=== PATIENT | female | born 1965 | race African-American/Black ===

== ENCOUNTER 2024-06-21 02:44 | Emergency (ER) | payer MEDICAID, SELFPAY ==
--- NOTE | ~2024-06-21 | CT_ITS ---
CT of the Abdomen and Pelvis: Indication: Abdominal pain Technique: 2.5 mm axial scans were obtained through the abdomen and pelvis following intravenous adm inistration of 100 cc of Omnipaque 350. Dose reduction technique was used on this scan by utilizing a utomated exposure control and iterative reconstruction technique. The dose-length product (DLP) was 1 611.38 mGy-cm. Findings: Scans through the lung bases are unremarkable. The liver, spleen, pancreas, adrenals and left kidney are within normal limits. There are gallstones with gallbladder wall thickening. Is a 1.6 cm possible solid right renal mass (axial image 67). No ev idence of aortic aneurysm. No lymphadenopathy. No bowel obstruction or bowel wall thickening. There is no evidence to suggest acute appendicitis. Images through the pelvis were performed. Urinary bladder unremarkable. No pelvic mass seen. Status p ost hysterectomy. No ascites. Impression: Cholelithiasis with gallbladder wall thickening, suspicious for superimposed acute cholecystitis. Cor relate clinically. Consider HIDA scan as indicated. Suspected 1.6 cm solid right renal mass. Pre and postcontrast renal MRI (nonemergent basis) recommend ed to better confirm solid lesion, which would be suspicious for small renal cell carcinoma. Reviewed, dictated and finalized at location M. Impression: Cholelithiasis with gallbladder wall thickening, suspicious for superimposed ac jessica cholecystitis. Correlate clinically. Consider HIDA scan as indicated. Suspected 1.6 cm solid right renal mass. Pre and postcontrast renal MRI (noneme rgent basis) recommended to better confirm solid lesion, which would be suspici ous for small renal cell carcinoma.
[2024-06-21 02:47] VITALS: BP 154/128; PULSE 70; RESP 16; TEMP 36.2; O2SAT 100
[2024-06-21 03:22] VITALS: BP 223/97; PULSE 71; RESP 28; O2SAT 100
[2024-06-21 03:40] LABS: Basophils Absolute Auto 0.1 K/mm3 (0.0-0.1); Basophils Percent Auto 1.8 % (0.2-1.2); Eosinophils Absolute Auto 0.1 K/mm3 (0-0.3); Eosinophils Percent Auto 1.1 % (0-4.4); Hematocrit 45.8 % (37.0-47.0); Hemoglobin 14.7 g/dL (12.0-15.0); Immature Granulocyte Absolute 0.01 K/mm3 (0.00-0.031); Immature Granulocyte Percent A 0.2 % (0-0.5); Lymphocytes Percent Auto 22.1 % (18.3-44.2); Mean Corpuscular HGB Conc 32.1 g/dl (32-36); Mean Corpuscular Hemoglobin 26.8 pg (26-34); Mean Corpuscular Volume 83.6 fl (80-100); Mean Platelet Volume 11.1 fl (7.4-10.4); Monocytes Absolute Auto 0.1 K/mm3 (0.1-0.6); Monocytes Percent Auto 2.9 % (2.6-8.5); Neutrophils Absolute Auto 3.3 K/mm3 (1.3-6.7); Neutrophils Percent Auto 71.9 % (45.5-73.1); Platelet Count Result 186 k/mm3 (150-375); Red Blood Count 5.48 M/mm3 (4.2-5.4); Red Cell Distribution Width 14.1 % (11.5-14.5); White Blood Count 4.5 K/mm3 (4.5-10.0)
[2024-06-21 03:50] LABS: Alanine Aminotransferase 15 U/L (6-35); Albumin Level 4.4 g/dL (3.5-5.1); Alkaline Phosphatase 92 U/L (38-126); Anion Gap 10 mmol/L (4-12); Aspartate Amino Transferase 25 U/L (14-36); Bilirubin,Total 0.6 mg/dL (0.2-1.3); Blood Urea Nitrogen 11 mg/dL (7-17); Calcium 9.4 mg/dL (8.4-10.2); Carbon Dioxide 29 mmol/L (22-30); Chloride 98 mmol/L (98-107); Estimated CRCL calculation 85 ml/min; Estimated Glomerular Filt Rate 57; Glucose 182 mg/dL (65-110); Sodium 137 mmol/L (137-145)
--- NOTE | 2024-06-21 05:02 | PC.NURSE ---
Pt refused morphine, zofran, and fluids. FARHADP Yessi, notified.
--- NOTE | 2024-06-21 05:20 | ED.GENADULT ---
HPI - General Adult General Chief complaint: Abdominal Pain <Flakito Dickson MD - Last Filed: 06/21/24 06:42> Stated complaint: abdominal pain <Flakito Dickson MD - Last Filed: 06/21/24 06:42> Time Seen by Provider: 06/21/24 04:03 <Flakito Dickson MD - Last Filed: 06/21/24 06:42> History of Present Illness HPI narrative: Patient denies no female presents emergency department with chief complaint of left-sided flank pain for last 2 weeks patient reports the pain is radiated now to the left upper side of the abdomen and reports that she has had some loose stools and nausea. The patient reports that she has prior partial hysterectomy reports that she has also had some frequent urination. <Flakito Dickson MD - Last Filed: 06/21/24 06:42> 58-year-old female presents to the emergency department with chief complaint of left-sided flank pain for last 2 weeks patient reports the pain is radiated now to the left upper side of the abdomen and reports that she has had some loose stools and nausea. The patient reports that she has prior partial hysterectomy reports that she has also had some frequent urination. <Garrett Law MD - Last Filed: 06/21/24 17:03> Related Data Allergies/adverse reactions: Allergies Allergy/AdvReac Type Severity Reaction Status Date / Time No Known Allergies Allergy Verified 06/21/24 03:25 <Flakito Dickson MD - Last Filed: 06/21/24 06:42> Exam Narrative: GENERAL: Well-appearing, well-nourished, and in no acute distress. HEAD: Normocephalic, atraumatic. EYES: PERRLA and EOMI. ENT: Nares clear, no rhinorrhea or epistaxis. Mucous membranes moist. NECK: Supple. CHEST: Clear to auscultation. No respiratory distress. HEART: Regular rate and rhythm. No murmur heard. Normal peripheral pulses. ABDOMEN: Soft, diffuse tenderness in the upper quadrants of the abdomen, nondistended, normal active bowel sounds. EXTREMITIES: Normal range of motion. No edema. SKIN: Warm, dry, no rash. NEURO: No focal deficits. Alert and oriented x3. PSYCH: Normal mood and affect. <Flakito Dickson MD - Last Filed: 06/21/24 06:42> Course Reevaluation(s) Reevaluation #1: 58-year-old female present to the emergency department for evaluation for diffuse abdominal pain. On re-evaluation patient has no tenderness to palpation. Patient is afebrile with no leukocytosis and a stable hemoglobin of 14.7. Patient has no elevation in T bili AST ALT alk-phos or lipase. UA is negative for infection. CT abdomen pelvis was concerning for possible acute cholecystitis but patient has no tenderness to palpation. CT was also concerning for a rectal mass and patient states she is aware of this mass. Patient states that is been present for approximately the last 15 years. Patient does have a primary care physician and patient was advised to have a HIDA scan and a rectal MRI. Patient was also updated on dietary changes. <Garrett Law MD - Last Filed: 06/21/24 17:03> Vital Signs Vital signs: Vital Signs Temperature 97.2 F L 06/21/24 02:47 Pulse Rate 70 06/21/24 02:47 Respiratory Rate 16 06/21/24 02:47 Blood Pressure 154/128 H 06/21/24 02:47 Pulse Oximetry 100 06/21/24 02:47 Oxygen Delivery Room Air 06/21/24 02:47 Temperature 97.7 F 06/21/24 07:45 Pulse Rate 71 06/21/24 07:45 Respiratory Rate 20 06/21/24 07:45 Blood Pressure 167/79 H 06/21/24 07:45 Pulse Oximetry 100 06/21/24 07:45 Oxygen Delivery Room Air 06/21/24 02:47 <Flakito Dickson MD - Last Filed: 06/21/24 06:42> Vital Signs Temperature 97.2 F L 06/21/24 02:47 Pulse Rate 70 06/21/24 02:47 Respiratory Rate 16 06/21/24 02:47 Blood Pressure 154/128 H 06/21/24 02:47 Pulse Oximetry 100 06/21/24 02:47 Oxygen Delivery Room Air 06/21/24 02:47 Temperature 97.7 F 06/21/24 07:45 Pulse Rate 71 06/21/24 07:45 Re
[2024-06-21 05:35] LABS: Add Urine Microscopic? YES; Appearance Urine Clear (Clear); Bacteria Urine None Seen /hpf; Bilirubin Urine Negative (Negative); Blood Urine Negative (Negative); Color Urine Yellow (Yellow); Glucose Urine UA Negative (Negative); Ketones Urine Negative (Negative); Leukocyte Esterase Ur Negative LEU/UL (Negative); Nitrate Urine Negative (Negative); Non Pathogenic Casts 0-2; Protein Urine Trace mg/dL (Negative); RBC Urine 0-2 /hpf (0-2); Specific Grav Ur 1.007 (1.001-1.035); Squamous Epithelial Cell Urine Occasional /hpf (Few); Urobilinogen Urine 0.2 mg/dL (<2.0); WBC Urine 0-5 /hpf (0-3)
[2024-06-21 05:45] VITALS: BP 191/87; PULSE 62; RESP 17; O2SAT 97
[2024-06-21 05:47] LABS: BEDSIDEPREGUCG Negative
--- NOTE | 2024-06-21 06:42 | PC.NURSE ---
Lab called regarding add on lipase
[2024-06-21 07:10] LABS: Lipase 230 U/L (23-300)
[2024-06-21 07:45] VITALS: BP 167/79; PULSE 71; RESP 20; TEMP 36.5; O2SAT 100
== END 2024-06-21 07:45 | disposition home or self-care (01) ==
PROVIDERS: Emergency Provider Emergency Medicine
DX: R10.12 Left upper quadrant pain (principal); K62.89 Other specified diseases of anus and rectum; Z90.711 Acquired absence of uterus with remaining cervical stump; K80.20 Calculus of gallbladder without cholecystitis without obstruction
CPT/HCPCS: 36415; 74177; 80053; 81001; 81025; 83690; 85025; 99284; Q9967

== ENCOUNTER 2024-06-23 10:03 | Inpatient (IN) | payer MEDICAID, SELFPAY ==
[2024-06-23] VITALS (11 sets, daily range): BP systolic 156–225; BP diastolic 69–92; PULSE 74–89; RESP 16–20; TEMP 36.8–37.6; O2SAT 96–100; BMI 54.5
--- NOTE | ~2024-06-23 | US_ITS ---
EXAMINATION: US abdomen limited DATE: 06/24/2024 15:43 INDICATION: Acute cholecystitis. TECHNIQUE: Multiple grayscale and Doppler ultrasound images of the abdomen were obtained. COMPARISON: CT abdomen and pelvis 06/23/2024 FINDINGS: The visualized portions of the head, body, and tail of the pancreas are normal. The liver i s normal without focal lesion. There is normal flow in main portal vein. The gallbladder is normal in size and contains gallstones. Gallbladder wall thickening is noted. There is a positive sonographic Lang sign. The common duct is normal and measures 6 mm. IMPRESSION: 1. Acute cholecystitis. Reviewed, dictated and finalized at location E. IMPRESSION: 1. Acute cholecystitis.
--- NOTE | ~2024-06-23 | US_ITS ---
EXAMINATION: US venous doppler [facility] DATE: 06/24/2024 13:04 INDICATION: Calf tenderness. TECHNIQUE: Grayscale ultrasound images without and with compression and Doppler ultrasound images of the bilateral lower extremity veins were obtained. COMPARISON: None. FINDINGS: The visualized portions of right common femoral vein, profunda (deep) femoral vein, femoral vein, pop liteal vein, peroneal veins, posterior tibial veins, and greater saphenous vein outflow are patent. The visualized portions of left common femoral vein, profunda femoral vein, femoral vein, popliteal v ein, peroneal veins, posterior tibial veins, and greater saphenous vein outflow are patent. IMPRESSION: 1. No deep venous thrombosis. Reviewed, dictated and finalized at location E.
--- NOTE | ~2024-06-23 | CT_ITS ---
EXAMINATION: CT abdomen pelvis w con DATE: 06/23/2024 11:59 INDICATION: Acute cholecystitis. Upper abdominal pain. TECHNIQUE: Computed tomography (CT) of the abdomen and pelvis was performed with 100 mL Omnipaque 350 intravenous contrast. Automated exposure control and iterative reconstruction technique were employe d. The dose-length product was 1476.83 mGy-cm. COMPARISON: CT abdomen and pelvis 06/21/2024 FINDINGS: The visualized portions of the lung bases demonstrate mild atelectasis. A calcified left harriet ng nodule and calcified left hilar lymph nodes are consistent with old granulomatous disease. No pleu ral effusion. The heart size is normal. No pericardial effusion. The liver is normal. There is a 10 m m hypodense mass in the spleen, likely a benign mass such as granulomatous disease. The gallbladder i s distended and contains gallstones. Gallbladder wall thickening is noted. There is pericholecystic f at stranding. The pancreas and adrenal glands are normal. There are cysts in the kidneys measuring up to 17 mm on the right. There is a 12 mm mass in right kidney There is cortical thinning of right kid tiffanie. There is diverticulosis of the colon without evidence of diverticulitis. There are no dilated lo ops of bowel. The appendix is normal. There are no pathologically enlarged lymph nodes. There is trac e fluid in the pelvis. There is severe lower lumbar spondylosis. IMPRESSION: 1. Worsened acute cholecystitis. 2. 12 mm right kidney mass which may be a hemorrhagic cyst or less likely a neoplasm. Abdomen MRI wit hout and with contrast is recommended. Reviewed, dictated and finalized at location A. IMPRESSION: 1. Worsened acute cholecystitis. 2. 12 mm right kidney mass which may be a hemorrhagic cyst or less likely a jeevan plasm. Abdomen MRI without and with contrast is recommended.
[2024-06-23 10:38] LABS: Basophils Absolute Auto 0.1 K/mm3 (0.0-0.1); Basophils Percent Auto 0.4 % (0.2-1.2); Hematocrit 46.4 % (37.0-47.0); Hemoglobin 14.9 g/dL (12.0-15.0); Immature Granulocyte Percent A 0.7 % (0-0.5); Lymphocytes Absolute Auto 0.86 K/mm3 (0.9-3.2); Lymphocytes Percent Auto 6.4 % (18.3-44.2); Mean Corpuscular HGB Conc 32.1 g/dl (32-36); Mean Corpuscular Hemoglobin 27.2 pg (26-34); Mean Corpuscular Volume 84.7 fl (80-100); Mean Platelet Volume 11.8 fl (7.4-10.4); Monocytes Absolute Auto 0.6 K/mm3 (0.1-0.6); Monocytes Percent Auto 4.2 % (2.6-8.5); Neutrophils Absolute Auto 11.9 K/mm3 (1.3-6.7); Neutrophils Percent Auto 88.3 % (45.5-73.1); Platelet Count Result 168 k/mm3 (150-375); Red Blood Count 5.48 M/mm3 (4.2-5.4); White Blood Count 13.5 K/mm3 (4.5-10.0)
--- NOTE | 2024-06-23 10:54 | ED.NAVMDI ---
HPI - Nausea/Vomiting/Diarrhea General Chief complaint: Nausea/Vomiting/Diarrhea Stated complaint: Nausea/vomitting Time Seen by Provider: 06/23/24 10:42 History of Present Illness HPI Narrative: This is a 58-year-old female presented to the ED for persistent abdominal pain. Patient states she was seen and evaluated 2 days prior and was told she had a gallbladder issue. On review of the EMR she was in this emergency department on 06/[address] scan that showed potential acute cholecystitis. Patient apparently had symptomatic resolution at that time and was discharged home with outpatient follow-up with HIDA scan. Patient states she did feel improved upon discharge but as soon as she got home she had worsening abdominal pain and subjective fever and chills. Endorses nausea and sensation of need to use the restroom consistently. Today she presents with worsening abdominal pain in the right upper quadrant that radiates to her back. She has been out of her home medications and states she has not been able to take her amlodipine or hydrochlorothiazide recently. Denies any chest pain or shortness of breath, headache, vision changes. No dysuria or hematuria. No tarry stools or bright red blood per rectum. Related Data Home Medications Medication Instructions Recorded Confirmed Unable to Obtain Home Medications 06/23/24 06/23/24 Allergies Allergy/AdvReac Type Severity Reaction Status Date / Time No Known Allergies Allergy Verified 06/23/24 11:01 Review of Systems Review of Systems: As reviewed above in HPI [facility] Past Medical History Medical History (Updated 06/23/24 @ 16:35 by Javon Maguire MD) Hypertension Social History Social History Smoking status: Never smoker Alcohol intake: never Substance use: never Do You Feel Safe in your Home?: Yes Lack of Transportation: YES Lack of Food: Sometimes True Current Housing: I Have Housing Concerned About Future Housing: YES Difficulty Paying Gas/Electric Bills: YES Difficulty Paying for Meds: No Currently Unemployed: No Education: High School Diploma/GED Difficulty w/ Childcare or Family Care: No Spiritual care concerns: No Exam Narrative: GENERAL: Morbidly obese but well nourished not in any acute distress HEAD: [Normocephalic, atraumatic.] EYES: [PERRLA and EOMI.] ENT: Nares clear, no rhinorrhea or epistaxis. Mucous membranes moist. NECK: Supple. CHEST: [Clear to auscultation. No respiratory distress.] HEART: [Regular rate and rhythm]. No murmur heard. [Normal peripheral pulses.] ABDOMEN: [Soft, nondistended], tenderness and warmth in the right upper quadrant that is with positive Lang sign, [No rigidity or guarding] EXTREMITIES: Normal range of motion. [No edema.] SKIN: Warm, dry, no rash. NEURO: [No focal deficits]. Alert and oriented [x3.] PSYCH: [Normal mood and affect.] Course Vital Signs Vital signs: Vital Signs Temperature 36.8 C 06/23/24 10:04 Pulse Rate 74 06/23/24 10:04 Respiratory Rate 18 06/23/24 10:04 Blood Pressure 225/92 H 06/23/24 10:04 Pulse Oximetry 100 06/23/24 10:04 Oxygen Delivery Room Air 06/23/24 10:04 Temperature 36.8 C 06/23/24 15:09 Pulse Rate 80 06/23/24 15:09 Respiratory Rate 20 06/23/24 15:09 Blood Pressure 172/83 H 06/23/24 15:09 Pulse Oximetry 100 06/23/24 15:09 Oxygen Delivery Room Air 06/23/24 10:04 MDM - Nausea/Vomiting/Diarrhea MDM Narrative Medical decision making narrative: This is a 58-year-old female with a past medical history including hypertension who presents to the ED for continued right upper quadrant abdominal discomfort. She had a CT scan 2 days prior that showed concern for acute cholecystitis but her symptoms resolved issues discharged home. Today she is returning with worsening abdominal discomfort, nauseousness as persistent and subjective f
[2024-06-23 10:56] LABS: Alanine Aminotransferase 14 U/L (6-35); Albumin Level 4.2 g/dL (3.5-5.1); Alkaline Phosphatase 97 U/L (38-126); Anion Gap 12 mmol/L (4-12); Aspartate Amino Transferase 19 U/L (14-36); Bilirubin,Total 1.3 mg/dL (0.2-1.3); Blood Urea Nitrogen 8 mg/dL (7-17); Calcium 8.9 mg/dL (8.4-10.2); Carbon Dioxide 26 mmol/L (22-30); Chloride 98 mmol/L (98-107); Estimated Glomerular Filt Rate > 60; Glucose 176 mg/dL (65-110); Lipase 98 U/L (23-300); Potassium 3.7 mmol/L (3.4-5.0); Sodium 136 mmol/L (137-145)
[2024-06-23] MEDS: HYDROmorphone HCL INJ (*CRX) 1 MG/ML SYR IV PUSH (11:21)
[2024-06-23] MEDS: ONDANSETRON INJ 4 MG/2 ML VIAL IV PUSH (11:21)
[2024-06-23] MEDS: LACTATED RINGERS 1,000 ML 999 ML IV CONT (11:22)
[2024-06-23] MEDS: hydroCHLOROthiazide 12.5 MG CAPSULE PO (11:33)
--- NOTE | 2024-06-23 14:20 | PM.IMHP ---
H&P: HPI History of Present Illness Date/Time: 06/23/24 14:00 Chief Complaint: Abdominal pain. Narrative: This is a pleasant 58-year-old female with history of deep venous thrombosis, type 2 diabetes mellitus, and hypertension who presented to the emergency department for evaluation of abdominal pain. The patient provides the following history. She lives in [place] and drove to [place] several weeks ago to visit family members. While in [place] she developed intermittent abdominal pain, initially in the left flank but it has settled more so into the right upper quadrant the last several days. Symptoms improved enough that she started back home however her car broke down in the area a few days ago and she has been staying at a local motel. Several days ago her pain worsened and she was seen in the ED 2 days ago at which time a CT scan showed cholelithiasis with gallbladder wall thickening suspicious for acute cholecystitis and a 1.6 cm solid right renal mass. Her symptoms improved with supportive care and she was discharged home for close follow-up with her primary care provider. Unfortunately she started feeling poorly again along after discharge from the ED and she returns today with colicky pain in the right upper quadrant radiating through to the back, nausea, poor appetite, subjective fever, and chills. She denies chest pain, pleuritic pain, shortness of breath, sinus congestion, sore throat, cough, vomiting, diarrhea, dysuria, hematuria, and weight loss. In the ED: She was afebrile on arrival. Blood pressure was as high as 225/92 and she reports being out of her antihypertensives for 2 days. Labs were significant for WBC count of 13.5, hemoglobin 14.9, sodium 136, glucose 176, and normal LFTs. Repeat CT scan showed worsened acute cholecystitis a 12 mm right kidney mass which may be hemorrhagic cyst or less likely neoplasm. She was given a L of lactated Ringer's, hydromorphone, and ceftriaxone and she is being admitted in this setting for further treatment and surgery consultation. Review of Systems Review of Systems: 12 systems were reviewed and are negative except for as per HPI. [facility], [facility] Past Medical History Medical History (Updated 06/23/24 @ 21:27 by Sujatha Condon PA-C) Deep venous thrombosis Following surgery. Hypertension Type 2 diabetes mellitus Surgical History Surgical History (Updated 06/23/24 @ 21:27 by Sujatha Condon PA-C) History of partial hysterectomy History of tubal ligation Family History Family History (Updated 06/23/24 @ 21:28 by Sujatha Condon PA-C) Other Family history non-contributory Social History Social History (Updated 06/23/24 @ 21:28 by Sujatha Condon PA-C) Social History: Surrogate medical decision maker: Mary Harry, sister. Code status: Full code. Smoking status: Never smoker Alcohol intake: never Substance use: never Do You Feel Safe in your Home?: Yes Lack of Transportation: YES Lack of Food: Sometimes True Current Housing: I Have Housing Concerned About Future Housing: YES Difficulty Paying Gas/Electric Bills: YES Difficulty Paying for Meds: No Currently Unemployed: No Education: High School Diploma/GED Difficulty w/ Childcare or Family Care: No Spiritual care concerns: No Meds Home Medications and Allergies Home Medications Medication Instructions Recorded Confirmed Type Unable to Obtain Home Medications 06/23/24 06/23/24 History Allergies Allergy/AdvReac Type Severity Reaction Status Date / Time No Known Allergies Allergy Verified 06/23/24 11:01 Vital Signs Vital Signs - 24 hr 06/23/24 10:04 06/23/24 10:58 06/23/24 14:05 Temperature 98.2 F Pulse Rate 74 82 88 Respiratory Rate 18 19 16 Blood Pressure 225/92 H 210/87 H 186/88 H Pulse Oximetry 100 100 96 Oxygen Delivery Room Air Exam Narrative: General: Moderately ill-appearing female in the semi-Vizcarra position in bed. Weight:
[2024-06-23] MEDS: LACTATED RINGERS 1,000 ML 125 ML IV CONT ×2 (15:11→20:50)
[2024-06-23] MEDS: metroNIDAZOLE 500 MG/ISO 100ML 500 MG/100 ML BAG 100 MG IVPB ×2 (15:11→20:51)
[2024-06-23 15:16] LABS: Add Urine Microscopic? YES; Appearance Urine Clear (Clear); Bacteria Urine None Seen /hpf; Bilirubin Urine Negative (Negative); Blood Urine Negative (Negative); Color Urine Yellow (Yellow); Glucose Urine UA Negative (Negative); Ketones Urine 1+ mg/dL (Negative); Leukocyte Esterase Ur Negative LEU/UL (Negative); Nitrate Urine Negative (Negative); Non Pathogenic Casts 0-2; Protein Urine 2+ mg/dL (Negative); RBC Urine 0-2 /hpf (0-2); Specific Grav Ur 1.035 (1.001-1.035); Squamous Epithelial Cell Urine Occasional /hpf (Few); WBC Urine 0-5 /hpf (0-3); pH Urine 7.5 (5.0-9.0)
[2024-06-23] MEDS: MORPHINE SULFATE (*CRX) 2 MG/ML INJ IV PUSH (18:08)
[2024-06-23] MEDS: HYDROcodone/acetaminophen (*CRX) 5-325 MG TABLET 1 TAB PO (20:52)
[2024-06-24] VITALS (11 sets, daily range): BP systolic 142–182; BP diastolic 53–84; PULSE 76–88; RESP 18–24; TEMP 37.4–38.6; O2SAT 96–100
[2024-06-24 05:01] LABS: Basophils Absolute Auto 0.1 K/mm3 (0.0-0.1); Basophils Percent Auto 0.3 % (0.2-1.2); Eosinophils Percent Auto 0.1 % (0-4.4); Hematocrit 40.4 % (37.0-47.0); Hemoglobin 12.9 g/dL (12.0-15.0); Immature Granulocyte Absolute 0.17 K/mm3 (0.00-0.031); Immature Granulocyte Percent A 0.9 % (0-0.5); Lymphocytes Absolute Auto 1.47 K/mm3 (0.9-3.2); Lymphocytes Percent Auto 7.4 % (18.3-44.2); Mean Corpuscular HGB Conc 31.9 g/dl (32-36); Mean Corpuscular Hemoglobin 27.2 pg (26-34); Mean Corpuscular Volume 85.1 fl (80-100); Monocytes Absolute Auto 1.4 K/mm3 (0.1-0.6); Neutrophils Absolute Auto 16.7 K/mm3 (1.3-6.7); Neutrophils Percent Auto 84.3 % (45.5-73.1); Platelet Count Result 166 k/mm3 (150-375); Red Blood Count 4.75 M/mm3 (4.2-5.4); Red Cell Distribution Width 14.1 % (11.5-14.5); White Blood Count 19.8 K/mm3 (4.5-10.0)
[2024-06-24 05:16] LABS: Alanine Aminotransferase 12 U/L (6-35); Albumin Level 3.4 g/dL (3.5-5.1); Alkaline Phosphatase 79 U/L (38-126); Anion Gap 8 mmol/L (4-12); Aspartate Amino Transferase 20 U/L (14-36); Bilirubin,Total 1.2 mg/dL (0.2-1.3); Blood Urea Nitrogen 14 mg/dL (7-17); Calcium 8.4 mg/dL (8.4-10.2); Carbon Dioxide 30 mmol/L (22-30); Chloride 96 mmol/L (98-107); Estimated CRCL calculation 61 ml/min; Estimated Glomerular Filt Rate 47; Glucose 151 mg/dL (65-110); Magnesium 2.1 mg/dL (1.6-2.3); Sodium 134 mmol/L (137-145)
[2024-06-24 05:45] LABS: Hemoglobin A1C 6.3 % (<5.7)
[2024-06-24] MEDS: metroNIDAZOLE 500 MG/ISO 100ML 500 MG/100 ML BAG 100 MG IVPB ×3 (06:34→21:12)
[2024-06-24] MEDS: ACETAMINOPHEN 325 MG TABLET 650 MG PO (06:34)
[2024-06-24] MEDS: LACTATED RINGERS 1,000 ML 125 ML IV CONT (06:34)
--- NOTE | 2024-06-24 07:12 | PM.IMPN ---
Progress Note: A&P Assessment and Plan (1) Sepsis: Code(s): A41.9 - Sepsis, unspecified organism Status: Acute Assessment and Plan: Meets SIRS criteria: febrile, leukocytosis, suspected source of infection - lactic acid: 0.8 - fluid resuscitation - suspected source: cholecystitis - blood cultures drawn on 06/24: pending - UA nonconcerning for infection - CT abdomen/pelvis: Worsened acute cholecystitis. 12 mm right kidney mass which may be a hemorrhagic cyst or less likely a neoplasm. - Antibiotics: flagyl and zosyn (2) Acute cholecystitis: Code(s): K81.0 - Acute cholecystitis Status: Acute Assessment and Plan: - CT abdomen/pelvis: Worsened acute cholecystitis. 12 mm right kidney mass which may be a hemorrhagic cyst or less likely a neoplasm. - RUQ US ordered - Antibiotics: started on Rocephin and Flagyl 06/23, Rocephin changed to Zosyn for better abdominal coverage on 06/24 - Surgery consulted Continue conservative management with IV antibiotics at this point, patient clinically improving and will start clears, advance as tolerated to low-fat diet (3) Right renal mass: Code(s): N28.89 - Other specified disorders of kidney and ureter Status: Acute Assessment and Plan: CT abdomen/pelvis: 12 mm right kidney mass which may be a hemorrhagic cyst or less likely a neoplasm. Abdomen MRI without and with contrast is recommended. - Can pursue MRI once acute symptoms resolve - Discussed with patient and she plans to follow up with PCP once back home (4) Hypertension: Code(s): I10 - Essential (primary) hypertension Status: Acute Assessment and Plan: Blood pressures are high due to pain; she has also been out of medications for 2 months. Resume antihypertensives. - amlodipine 10 mg daily - continue to monitor (5) Type 2 diabetes mellitus: Code(s): E11.9 - Type 2 diabetes mellitus without complications Status: Acute Assessment and Plan: - hypoglycemia protocol - POC blood glucose ACHS - home medication - none, states she was recently taken off of metformin by her PCP - correct regimen ordered - low dose TIDWM and HS - A1C 6.3 Time Spent With Patient Time with patient: 25 - 35 minutes Subjective Date/time seen: 06/24/24 07:12 Interval history: 58-year-old female with history of deep venous thrombosis, type 2 diabetes mellitus, and hypertension who presented to the emergency department for evaluation of abdominal pain. Patient is pleasant lying comfortably in bed. She continues to endorse right upper quadrant pain, but states that this has improved since admission. She notes that the current pain regimen is working. She was evaluated by surgery today and plans to undergo medical management at this time. She was on Flagyl and Rocephin at admission. Rocephin discontinued and started on Zosyn for better abdominal coverage. Patient was noted to be febrile this morning, requiring tylenol. Will continue to monitor. Patients diet being advanced as tolerated. Discussed the right renal mass with patient and she was unaware of this. She is to follow up with this outpatient with PCP. Patient denies nausea/vomiting, chest pain, shortness of breath, and changes in bowel/bladder. Review of Systems Review of Systems: All systems reviewed & are unremarkable except as noted in HPI and below Exam Narrative: F HR 84 RR 20 SpO2 96 BP 156/53 General: female in no acute respiratory distress who is nontoxic appearing, sitting up in bed HEENT: Normocephalic. Atraumatic. Extraocular movement intact. Sclera clear and anicteric. No facial asymmetry. Chest: Lungs are clear to auscultation bilaterally. No wheezes or crackles. CV: Heart was regular rate and rhythm. S1-S2. No murmurs, gallops, or rubs. Abd: Abdomen was soft. Tenderness to RUQ without guarding. Nondistended. Positive bowel sounds. No organomegaly or masses. Ext: No clubbing, cyanosis, or edema. 2+ DP p
[2024-06-24 07:47] LABS: Glucose Point of Care 148 mg/dl (65-105)
--- NOTE | 2024-06-24 08:05 | PM.CNGS ---
Assessment and Plan Assessment and plan (1) Cholecystitis with cholelithiasis: Code(s): K80.10 - Calculus of gallbladder with chronic cholecystitis without obstruction Status: Acute Assessment and Plan: Episode has been ongoing for the last week or so, continue conservative management with IV antibiotics at this point, patient clinically improving and will start clears and advance as tolerated to low-fat diet, will get formal right upper quadrant ultrasound, discussion with patient regarding surgery and patient would like to proceed with conservative therapy and possibly have surgery back in [place] if possible (2) Right renal mass: Code(s): N28.89 - Other specified disorders of kidney and ureter Status: Acute Assessment and Plan: seen on CT, will need follow-up once back to [place] (3) Type 2 diabetes mellitus: Code(s): E11.9 - Type 2 diabetes mellitus without complications Status: Acute Assessment and Plan: will need tight blood sugar control given cholecystitis, management per primary team (4) Hypertension: Code(s): I10 - Essential (primary) hypertension Status: Acute Assessment and Plan: noted to be quite hypertensive in the emergency department, management per primary team History of Present Illness Consult details Consult date: 06/24/24 Reason for consult: abdominal pain Requesting physician: Neida Andre PA-C Narrative: The patient is a 58-year-old female presented to the emergency department complaining of severe right upper quadrant abdominal pain. The patient reports the pain was sharp and constant and rated at 10/10. The patient reports associated nausea, vomiting, poor appetite, bloating. Patient reports that this episode has been going on for few days and was actually seen in the ER prior to this with similar episode that resolved with supportive care. Upon evaluation today, the patient reports she feels much better and would like to try a diet. Of note, the patient is not from the [facility] and has been traveling. Review of Systems Review of Systems: All systems reviewed & are unremarkable except as noted in HPI and below PMFSH Past Medical History Medical History Deep venous thrombosis Following surgery. Hypertension Type 2 diabetes mellitus Surgical History Surgical History History of partial hysterectomy History of tubal ligation Family History Family History Other Family history non-contributory Social History Social History Social History: Surrogate medical decision maker: Mary Harry, sister. Code status: Full code. Smoking status: Never smoker Alcohol intake: never Substance use: never Do You Feel Safe in your Home?: Yes Lack of Transportation: YES Lack of Food: Sometimes True Current Housing: I Have Housing Concerned About Future Housing: YES Difficulty Paying Gas/Electric Bills: YES Difficulty Paying for Meds: No Currently Unemployed: No Education: High School Diploma/GED Difficulty w/ Childcare or Family Care: No Spiritual care concerns: No Meds Home Medications and Allergies Home Medications Medication Instructions Recorded Confirmed Type Unable to Obtain Home Medications 06/23/24 06/23/24 History Allergies Allergy/AdvReac Type Severity Reaction Status Date / Time No Known Allergies Allergy Verified 06/23/24 11:01 Vital Signs Vital Signs - 24 hr 06/23/24 10:04 06/23/24 10:58 06/23/24 14:05 Temperature 36.8 C Pulse Rate 74 82 88 Respiratory Rate 18 19 16 Blood Pressure 225/92 H 210/87 H 186/88 H Pulse Oximetry 100 100 96 Oxygen Delivery Room Air 06/23/24 10:19 06/23/24 15:09 06/23/24 15:07 Temperature 36.8 C
[2024-06-24 08:25] LABS: Lactic Acid Reflex 0.8 mmol/L (0.7-2.0)
[2024-06-24] MEDS: amLODIPine BESYLATE 10 MG TABLET PO (08:33)
[2024-06-24] MEDS: SODIUM CHLORIDE 0.9% IV 1,000 ML 75 ML IV CONT ×2 (08:33→21:11)
[2024-06-24] MEDS: PIPERACILLN/TAZ 3.375GM/NS50ML 3.375 GM/50 ML BAG IVPB ×3 (08:33→19:34)
[2024-06-24 12:01] LABS: Glucose Point of Care 163 mg/dl (65-105)
[2024-06-24] MEDS: MORPHINE SULFATE (*CRX) 2 MG/ML INJ IV PUSH (14:22)
[2024-06-24] MEDS: hydrALAZINE HCL 20 MG/ML VIAL 10 MG IV PUSH (16:00)
[2024-06-24 17:09] LABS: Glucose Point of Care 148 mg/dl (65-105)
[2024-06-24] MEDS: HYDROcodone/acetaminophen (*CRX) 5-325 MG TABLET 1 TAB PO (21:12)
[2024-06-24] MEDS: SENNA/DOCUSATE SODIUM TABLET 1 TAB PO (21:12)
[2024-06-24 21:15] LABS: Glucose Point of Care 149 mg/dl (65-105)
[2024-06-25] VITALS: BP 137/59; PULSE 76; RESP 18; TEMP 37.1; O2SAT 96
[2024-06-25] MEDS: PIPERACILLN/TAZ 3.375GM/NS50ML 3.375 GM/50 ML BAG IVPB ×4 (00:50→17:53)
[2024-06-25 04:50] LABS: Basophils Percent Auto 0.3 % (0.2-1.2); Eosinophils Absolute Auto 0.1 K/mm3 (0-0.3); Hematocrit 40.3 % (37.0-47.0); Hemoglobin 12.5 g/dL (12.0-15.0); Immature Granulocyte Absolute 0.07 K/mm3 (0.00-0.031); Immature Granulocyte Percent A 0.5 % (0-0.5); Lymphocytes Absolute Auto 1.53 K/mm3 (0.9-3.2); Mean Corpuscular Hemoglobin 26.8 pg (26-34); Mean Corpuscular Volume 86.3 fl (80-100); Mean Platelet Volume 11.9 fl (7.4-10.4); Monocytes Percent Auto 6.9 % (2.6-8.5); Neutrophils Absolute Auto 11.1 K/mm3 (1.3-6.7); Neutrophils Percent Auto 80.3 % (45.5-73.1); Platelet Count Result 148 k/mm3 (150-375); Red Blood Count 4.67 M/mm3 (4.2-5.4); Red Cell Distribution Width 14.1 % (11.5-14.5); White Blood Count 13.9 K/mm3 (4.5-10.0)
[2024-06-25 05:00] LABS: Alanine Aminotransferase 23 U/L (6-35); Albumin Level 3.3 g/dL (3.5-5.1); Alkaline Phosphatase 105 U/L (38-126); Anion Gap 7 mmol/L (4-12); Aspartate Amino Transferase 37 U/L (14-36); Bilirubin,Total 1.4 mg/dL (0.2-1.3); Blood Urea Nitrogen 13 mg/dL (7-17); Calcium 8.2 mg/dL (8.4-10.2); Carbon Dioxide 29 mmol/L (22-30); Chloride 98 mmol/L (98-107); Estimated CRCL calculation 67 ml/min; Estimated Glomerular Filt Rate 51; Glucose 120 mg/dL (65-110); Potassium 3.6 mmol/L (3.4-5.0); Sodium 134 mmol/L (137-145)
[2024-06-25 05:32] VITALS: BP 147/63; PULSE 75; RESP 18; TEMP 37.3; O2SAT 100
[2024-06-25] MEDS: metroNIDAZOLE 500 MG/ISO 100ML 500 MG/100 ML BAG 100 MG IVPB ×3 (06:20→20:03)
--- NOTE | 2024-06-25 07:47 | PM.IMPN ---
Progress Note: A&P Assessment and Plan (1) Sepsis: Code(s): A41.9 - Sepsis, unspecified organism Status: Acute Assessment and Plan: Meets SIRS criteria: febrile, leukocytosis, suspected source of infection - lactic acid: 0.8 - fluid resuscitation - suspected source: cholecystitis - blood cultures drawn on 06/24: NGTD - UA nonconcerning for infection - CT abdomen/pelvis: Worsened acute cholecystitis. 12 mm right kidney mass which may be a hemorrhagic cyst or less likely a neoplasm. - Antibiotics: flagyl and zosyn (2) Acute cholecystitis: Code(s): K81.0 - Acute cholecystitis Status: Acute Assessment and Plan: - CT abdomen/pelvis: Worsened acute cholecystitis. 12 mm right kidney mass which may be a hemorrhagic cyst or less likely a neoplasm. - RUQ US ordered - Antibiotics: started on Rocephin and Flagyl 06/23, Rocephin changed to Zosyn for better abdominal coverage on 06/24 - Surgery consulted Continue conservative management with IV antibiotics at this point, patient clinically improving and will start clears, advance as tolerated to low-fat diet Due to patients inflammation would benefit from surgery outpatient, per surgery patient plans to follow up with him rather than returning to [place] (3) Right renal mass: Code(s): N28.89 - Other specified disorders of kidney and ureter Status: Acute Assessment and Plan: CT abdomen/pelvis: 12 mm right kidney mass which may be a hemorrhagic cyst or less likely a neoplasm. Abdomen MRI without and with contrast is recommended. - Can pursue MRI once acute symptoms resolve - Discussed with patient and she plans to follow up with PCP once back home (4) Hypertension: Code(s): I10 - Essential (primary) hypertension Status: Acute Assessment and Plan: Blood pressures are high due to pain; she has also been out of medications for 2 months. Resume antihypertensives. - amlodipine 10 mg daily - continue to monitor (5) Type 2 diabetes mellitus: Code(s): E11.9 - Type 2 diabetes mellitus without complications Status: Acute Assessment and Plan: - hypoglycemia protocol - POC blood glucose ACHS - home medication - none, states she was recently taken off of metformin by her PCP - correct regimen ordered - low dose TIDWM and HS - A1C 6.3 Time Spent With Patient Time with patient: 25 - 35 minutes Subjective Date/time seen: 06/25/24 07:47 Interval history: 58-year-old female with history of deep venous thrombosis, type 2 diabetes mellitus, and hypertension who presented to the emergency department for evaluation of abdominal pain. Patient is pleasant lying comfortably in bed. She continues to endorse RUQ abdominal pain. She complains of increased nausea and abdominal pain with meals. She remains on liquid diet at this time with plan to advance as tolerated. Spoke with Dr. Farah about patient and he states that she now plans to follow up with him in the outpatient setting for surgery. She is to remain on antibiotic therapy at this time. Patient denies chest pain, shortness of breath, vomiting and changes in bladder. She states that she has not had a bowel movement and was started on a bowel regimen yesterday. Review of Systems Review of Systems: All systems reviewed & are unremarkable except as noted in HPI and below Exam Narrative: Low grade fevers HR 75 RR 18 SpO2 100 BP 147/63 General: female in no acute respiratory distress who is nontoxic appearing, sitting up in bed HEENT: Normocephalic. Atraumatic. Extraocular movement intact. Sclera clear and anicteric. No facial asymmetry. Chest: Lungs are clear to auscultation bilaterally. No wheezes or crackles. CV: Heart was regular rate and rhythm. S1-S2. No murmurs, gallops, or rubs. Abd: Abdomen was soft. Tenderness to RUQ. Nondistended. Positive bowel sounds. No organomegaly or masses. Neuro: Patient is alert.Cranial nerves 2-12 are intact. Speech is clear. Psyc
[2024-06-25 08:00] VITALS: BP 155/59; PULSE 98; RESP 79; TEMP 36.7; O2SAT 18
[2024-06-25 08:16] LABS: Glucose Point of Care 144 mg/dl (65-105)
[2024-06-25] MEDS: amLODIPine BESYLATE 10 MG TABLET PO (08:27)
--- NOTE | 2024-06-25 08:58 | ECG_ITS ---
Test Date: 2024-06-25 10:06:44 Measurements Intervals [place]by Rate: 82 P: 71 CT: 165 QRS: 62 QRSD: 94 T: 118 QT: 359 QTc: 420 Interpretive Statements SINUS RHYTHM POSSIBLE LEFT ATRIAL ENLARGEMENT [-0.1mV P WAVE IN V1/V2] NONSPECIFIC T-WAVE ABNORMALITY, CONSIDER LATERAL ISCHEMIA ABNORMAL ECG No previous ECG available for comparison Electronically Signed On 06-25-2024 12:35:46 CDT by Ha Sexton M.D.
--- NOTE | 2024-06-25 11:03 | PM.PNGS ---
Progress Note: A&P Assessment and Plan (1) Acute cholecystitis: Code(s): K81.0 - Acute cholecystitis Status: Acute Assessment and Plan: improving, cont conservative mgmt c abx, advance to low fat diet, interval yuan as outpt Subjective Subjective Date/Time Seen: 06/25/24 11:03 Interval history: feels better today, less pain, nuha clears Review of Systems Review of Systems: All systems reviewed & are unremarkable except as noted in HPI and below Exam Const: General: cooperative, comfortable and no acute distress Resp: Auscultation: clear to auscultation bilaterally Cardio: Rate: regular rate Rhythm: regular rhythm GI: Inspection: normal to inspection and non-distended GI Palp: Yes abdominal tenderness, Yes Soft to palpation and Yes Tenderness to palpation present (GI) Objective Data Vital Signs Vital Signs: Vital Signs - 24 hr 06/24/24 12:00 06/24/24 16:00 06/24/24 17:22 Temperature 37.4 C 37.5 C Pulse Rate 80 85 Respiratory Rate 20 24 H Blood Pressure 181/71 H 182/64 H 180/66 H Pulse Oximetry 100 98 Oxygen Delivery 06/24/24 19:36 06/24/24 21:06 06/25/24 00:00 Temperature 37.7 C H 37.9 C H 37.1 C Pulse Rate 88 76 Respiratory Rate 18 18 Blood Pressure 171/65 H 155/68 H 137/59 L Pulse Oximetry 96 96 Oxygen Delivery 06/24/24 20:00 06/25/24 05:32 06/25/24 08:00 Temperature 37.3 C 36.7 C Pulse Rate 76 75 98 Respiratory Rate 18 18 79 H Blood Pressure 147/63 H 155/59 H Pulse Oximetry 96 100 18 L Oxygen Delivery Room Air Intake/Output Intake/Output: Intake & Output 06/22/24 06/23/24 06/24/24 06/25/24 23:59 23:59 23:59 23:59 Intake Total 1956.3 3657.5 890 Output Total 250 Balance 1956.3 3407.5 890 Meds/Results Medications: Active Medications Generic Name Dose Route Start Last Admin Trade Name Freq PRN Reason Stop Dose Admin Acetaminophen 650 mg 06/23/24 14:30 06/24/24 06:34 Acetaminophen 325 Mg Tablet PO 650 mg Q6H PRN Administration Mild Pain (1-3) or Fever Hydrocodone Bitart/Acetaminophen 1 tab 06/23/24 14:30 06/24/24 21:12 Hydrocodone/Acetaminophen (*Crx) 5-325 Mg Tablet PO 1 tab Q6H PRN Administration Pain Rated 4-6 Amlodipine Besylate 10 mg 06/24/24 09:00 06/25/24 08:27 Amlodipine Besylate 10 Mg Tablet PO 10 mg DAILY DAVID Administration Dextrose 12.5 gm 06/23/24 21:32 Dextrose 50% 25 Gm/50 Ml Syringe IV PUSH PRN PRN Hypoglycemia Protocol Glucagon 1 mg 06/23/24 21:32 Glucagon For Inj 1 Mg Vial IM PRN PRN Hypoglycemia Protocol Glucose 15 gm 06/23/24 21:32 Glucose Oral Gel 15 Gm Of Glucse In 37.5 Gm Tube PO PRN PRN Hypoglycemia Protocol Hydralazine HCl 10 mg 06/24/24 14:11 06/24/24 16:00 Hydralazine Hcl 20 Mg/Ml Vial IV PUSH 10 mg Q8H PRN Administration Systolic > 180 Metronidazole 500 mg in 100 mls @ 100 mls/hr 06/23/24 14:35 06/25/24 07:20 Flagyl 500 Mg/Iso Soln 100 Ml IVPB Infused Q8HR DAVID Infusion Dextrose 1,000 mls @ 100 mls/hr 06/23/24 21:32 Dextrose 5% 1,000 Ml IVPB PRN PRN Hypoglycemia Protocol Sodium Chloride 1,000 mls @ 75 mls/hr 06/24/24 07:20 06/24/24 21:11 Normal Saline Iv IV CONT 75 mls/hr .[id number] DAVID Administration Piperacillin/Tazobactam/Dextrose 3.375 gm in 50 mls @ 100 mls/hr 06/24/24 14:00 06/25/24 06:50 Zosyn 3.375 Gm/Ns 50 Ml IVPB Infused Q6HR DAVID Infusion Insulin Aspart 3 - 6 units 06/24/24 08:00 06/25/24 08:25 Insulin Aspart (*Bkc) 100 Units/Ml SUB-Q Not Given TIDWM DAVID Protocol Insulin Aspart 1 - 3 units 06/24/24 21:00 06/24/24 21:09 Insulin Aspart (*Bkc) 100 Units/Ml SUB-Q Not Given HS DAVID Protocol Morphine Sulfate 2 mg 06/23/24 14:30 06/24/24 14:22 Morphine Sulfate (*Crx) 2 Mg/Ml Inj IV PUSH 2 mg Q4H PRN Administration Pain Rated 7-10 Ondansetron HCl 4 mg 06/23/24 14:30
[2024-06-25] MEDS: SODIUM CHLORIDE 0.9% IV 1,000 ML 75 ML IV CONT ×2 (11:08→20:01)
[2024-06-25 11:45] LABS: Glucose Point of Care 173 mg/dl (65-105)
[2024-06-25 14:00] VITALS: BP 172/76; PULSE 91; RESP 21; TEMP 37.3; O2SAT 98
[2024-06-25] MEDS: HYDROcodone/acetaminophen (*CRX) 5-325 MG TABLET 1 TAB PO (15:37)
[2024-06-25 17:06] LABS: Glucose Point of Care 185 mg/dl (65-105)
[2024-06-25 18:23] VITALS: BP 155/54; PULSE 80; RESP 21; TEMP 37.2; O2SAT 95
[2024-06-25 20:00] VITALS: BP 146/59; PULSE 78; RESP 16; TEMP 37.8; O2SAT 97
[2024-06-25] MEDS: SENNA/DOCUSATE SODIUM TABLET 1 TAB PO (20:03)
[2024-06-25] MEDS: MORPHINE SULFATE (*CRX) 2 MG/ML INJ IV PUSH (20:04)
[2024-06-25 21:10] LABS: Glucose Point of Care 197 mg/dl (65-105)
[2024-06-26] VITALS (7 sets, daily range): BP systolic 145–181; BP diastolic 55–95; PULSE 74–89; RESP 16–18; TEMP 36.7–37.9; O2SAT 96–100
[2024-06-26] MEDS: PIPERACILLN/TAZ 3.375GM/NS50ML 3.375 GM/50 ML BAG IVPB ×5 (00:49→23:46)
[2024-06-26] MEDS: HYDROcodone/acetaminophen (*CRX) 5-325 MG TABLET 1 TAB PO ×3 (05:31→21:10)
[2024-06-26] MEDS: metroNIDAZOLE 500 MG/ISO 100ML 500 MG/100 ML BAG 100 MG IVPB ×3 (05:32→21:10)
[2024-06-26 06:44] LABS: Basophils Absolute Auto 0.1 K/mm3 (0.0-0.1); Basophils Percent Auto 0.4 % (0.2-1.2); Eosinophils Absolute Auto 0.2 K/mm3 (0-0.3); Eosinophils Percent Auto 1.4 % (0-4.4); Immature Granulocyte Absolute 0.09 K/mm3 (0.00-0.031); Immature Granulocyte Percent A 0.8 % (0-0.5); Lymphocytes Absolute Auto 1.68 K/mm3 (0.9-3.2); Lymphocytes Percent Auto 14.2 % (18.3-44.2); Mean Corpuscular HGB Conc 32.4 g/dl (32-36); Mean Corpuscular Hemoglobin 27.3 pg (26-34); Mean Corpuscular Volume 84.3 fl (80-100); Mean Platelet Volume 11.3 fl (7.4-10.4); Monocytes Absolute Auto 0.9 K/mm3 (0.1-0.6); Monocytes Percent Auto 7.3 % (2.6-8.5); Neutrophils Percent Auto 75.9 % (45.5-73.1); Platelet Count Result 174 k/mm3 (150-375); Red Blood Count 4.39 M/mm3 (4.2-5.4); Red Cell Distribution Width 14.1 % (11.5-14.5); White Blood Count 11.9 K/mm3 (4.5-10.0)
[2024-06-26 06:51] LABS: Alanine Aminotransferase 15 U/L (6-35); Alkaline Phosphatase 109 U/L (38-126); Anion Gap 7 mmol/L (4-12); Aspartate Amino Transferase 22 U/L (14-36); Bilirubin,Total 0.9 mg/dL (0.2-1.3); Blood Urea Nitrogen 7 mg/dL (7-17); Calcium 8.2 mg/dL (8.4-10.2); Carbon Dioxide 28 mmol/L (22-30); Chloride 99 mmol/L (98-107); Estimated CRCL calculation 79 ml/min; Estimated Glomerular Filt Rate > 60; Glucose 133 mg/dL (65-110); Potassium 3.3 mmol/L (3.4-5.0); Sodium 134 mmol/L (137-145)
--- NOTE | 2024-06-26 08:04 | PM.IMPN ---
Progress Note: A&P Assessment and Plan (1) Sepsis: Code(s): A41.9 - Sepsis, unspecified organism Status: Acute Assessment and Plan: Meets SIRS criteria: febrile, leukocytosis, suspected source of infection - lactic acid: 0.8 - WBC downtrending - fluid resuscitation - suspected source: cholecystitis - blood cultures drawn on 06/24: NGTD - UA nonconcerning for infection - CT abdomen/pelvis: Worsened acute cholecystitis. 12 mm right kidney mass which may be a hemorrhagic cyst or less likely a neoplasm. - Antibiotics: flagyl and zosyn (2) Acute cholecystitis: Code(s): K81.0 - Acute cholecystitis Status: Acute Assessment and Plan: - CT abdomen/pelvis: Worsened acute cholecystitis. 12 mm right kidney mass which may be a hemorrhagic cyst or less likely a neoplasm. - RUQ US: acute cholecystitis with gallstones noted. Positive murphys sign. - Bili and LFTs WNL - Antibiotics: started on Rocephin and Flagyl 06/23, Rocephin changed to Zosyn for better abdominal coverage on 06/24 - Surgery consulted Continue IV antibiotics Patient wishes to proceed with surgery. Cholecystectomy scheduled for tomorrow (3) Right renal mass: Code(s): N28.89 - Other specified disorders of kidney and ureter Status: Acute Assessment and Plan: CT abdomen/pelvis: 12 mm right kidney mass which may be a hemorrhagic cyst or less likely a neoplasm. Abdomen MRI without and with contrast is recommended. - Can pursue MRI once acute symptoms resolve - Discussed with patient and she plans to follow up with PCP once back home (4) Hypertension: Code(s): I10 - Essential (primary) hypertension Status: Acute Assessment and Plan: Blood pressures are high due to pain; she has also been out of medications for 2 months. Resume antihypertensives. - amlodipine 10 mg daily - started on losartan 12.5 mg daily - hydralazine 10 mg PRN for systolic >180 - continue to monitor (5) Type 2 diabetes mellitus: Code(s): E11.9 - Type 2 diabetes mellitus without complications Status: Acute Assessment and Plan: - hypoglycemia protocol - POC blood glucose ACHS - home medication - none, states she was recently taken off of metformin by her PCP - correct regimen ordered - low dose TIDWM and HS - A1C 6.3 Time Spent With Patient Time with patient: 25 - 35 minutes Subjective Date/time seen: 06/26/24 08:04 Interval history: 58-year-old female with history of deep venous thrombosis, type 2 diabetes mellitus, and hypertension who presented to the emergency department for evaluation of abdominal pain. Patient is pleasant lying comfortably in bed. She continues to have low-grade fevers and increased nausea /right upper quadrant pain with diet. She was evaluated by surgery today and plans to move forward with cholecystectomy tomorrow. Patient continues to have elevated blood pressures on her home amlodipine. Will start losartan 12.5 mg daily. She denies chest pain shortness a breath vomiting and changes in bladder. She does note that she has had bowel movement since starting the bowel regimen. Review of Systems Review of Systems: All systems reviewed & are unremarkable except as noted in HPI and below Exam Narrative: AF HR 89 RR 18 SPO2 100 BP 179/69 General: female in no acute respiratory distress who is nontoxic appearing, sitting up in bed HEENT: Normocephalic. Atraumatic. Extraocular movement intact. Sclera clear and anicteric. No facial asymmetry. Chest: Lungs are clear to auscultation bilaterally. No wheezes or crackles. CV: Heart was regular rate and rhythm. S1-S2. No murmurs, gallops, or rubs. Abd: Abdomen was soft. Tenderness to RUQ. Nondistended. Positive bowel sounds. No organomegaly or masses. Objective Data Vital Signs Vital Signs: Vital Signs - 24 hr 06/25/24 14:00 06/25/24 18:23 06/25/24 20:00 Temperature 99.1 F 98.9 F 100.1 F H Pulse Rate 91 80 78 Respirat
[2024-06-26 08:11] LABS: Glucose Point of Care 143 mg/dl (65-105)
[2024-06-26] MEDS: amLODIPine BESYLATE 10 MG TABLET PO (09:51)
[2024-06-26 12:12] LABS: Glucose Point of Care 153 mg/dl (65-105)
--- NOTE | 2024-06-26 12:57 | PM.PNGS ---
Progress Note: A&P Assessment and Plan (1) Cholecystitis with cholelithiasis: Code(s): K80.10 - Calculus of gallbladder with chronic cholecystitis without obstruction Status: Acute Assessment and Plan: long d/w pt re: cholecystectomy melissa increased risks given acute inflammation and her obesity, pt would like to proceed with surgery, NPO p MN, cont IV abx, plan for cholecystectomy tomorrow Subjective Subjective Date/Time Seen: 06/26/24 12:57 Interval history: pt still c/o RUQ pain melissa p eating, also some bloating, nausea Review of Systems Review of Systems: All systems reviewed & are unremarkable except as noted in HPI and below Exam Const: General: cooperative, no acute distress, uncomfortable and obese Resp: Auscultation: clear to auscultation bilaterally Cardio: Rate: regular rate Rhythm: regular rhythm GI: Inspection: normal to inspection and distended GI Palp: Yes abdominal tenderness, Yes Soft to palpation, Yes Tenderness to palpation present (GI), No Guarding due to palpation present (GI) and No Rigid due to palpation Objective Data Vital Signs Vital Signs: Vital Signs - 24 hr 06/25/24 14:00 06/25/24 18:23 06/25/24 20:00 Temperature 37.3 C 37.2 C 37.8 C H Pulse Rate 91 80 78 Respiratory Rate 21 H 21 H 16 Blood Pressure 172/76 H 155/54 H 146/59 H Pulse Oximetry 98 95 97 Oxygen Delivery 06/25/24 20:00 06/26/24 00:00 06/26/24 04:00 Temperature 37.9 C H 37.8 C H Pulse Rate 78 85 77 Respiratory Rate 16 16 18 Blood Pressure 149/61 H 145/55 H Pulse Oximetry 97 98 97 Oxygen Delivery Room Air 06/26/24 06:33 06/26/24 07:43 06/26/24 09:50 Temperature 37.9 C H 36.7 C Pulse Rate 81 Respiratory Rate 18 Blood Pressure 181/63 H Pulse Oximetry 98 Oxygen Delivery Room Air 06/26/24 12:43 Temperature 36.7 C Pulse Rate 89 Respiratory Rate 18 Blood Pressure 179/69 H Pulse Oximetry 100 Oxygen Delivery Intake/Output Intake/Output: Intake & Output 06/23/24 06/24/24 06/25/24 06/26/24 23:59 23:59 23:59 23:59 Intake Total 6.3 3657.5 3646.2 390 Output Total 250 Balance 1956.3 3407.5 3646.2 390 Meds/Results Medications: Active Medications Generic Name Dose Route Start Last Admin Trade Name Freq PRN Reason Stop Dose Admin Acetaminophen 650 mg 06/23/24 14:30 06/24/24 06:34 Acetaminophen 325 Mg Tablet PO 650 mg Q6H PRN Administration Mild Pain (1-3) or Fever Hydrocodone Bitart/Acetaminophen 1 tab 06/23/24 14:30 06/26/24 05:31 Hydrocodone/Acetaminophen (*Crx) 5-325 Mg Tablet PO 1 tab Q6H PRN Administration Pain Rated 4-6 Amlodipine Besylate 10 mg 06/24/24 09:00 06/26/24 09:51 Amlodipine Besylate 10 Mg Tablet PO 10 mg DAILY DAVID Administration Dextrose 12.5 gm 06/23/24 21:32 Dextrose 50% 25 Gm/50 Ml Syringe IV PUSH PRN PRN Hypoglycemia Protocol Glucagon 1 mg 06/23/24 21:32 Glucagon For Inj 1 Mg Vial IM PRN PRN Hypoglycemia Protocol Glucose 15 gm 06/23/24 21:32 Glucose Oral Gel 15 Gm Of Glucse In 37.5 Gm Tube PO PRN PRN Hypoglycemia Protocol Hydralazine HCl 10 mg 06/24/24 14:11 06/24/24 16:00 Hydralazine Hcl 20 Mg/Ml Vial IV PUSH 10 mg Q8H PRN Administration Systolic > 180 Metronidazole 500 mg in 100 mls @ 100 mls/hr 06/23/24 14:35 06/26/24 05:32 Flagyl 500 Mg/Iso Soln 100 Ml IVPB 100 mls/hr Q8HR DAVID Administration Dextrose 1,000 mls @ 100 mls/hr 06/23/24 21:32 Dextrose 5% 1,000 Ml IVPB PRN PRN Hypoglycemia Protocol Sodium Chloride 1,000 mls @ 75 mls/hr 06/24/24 07:20 06/25/24 20:01 Normal Saline Iv IV CONT 75 mls/hr .[id number] DAVID Administration Piperacillin/Tazobactam/Dextrose 3.375 gm in 50 mls @ 100 mls/hr 06/24/24 14:00 06/26/24 12:25 Zosyn 3.375 Gm/Ns 50 Ml IVPB 100 mls/hr Q6HR DAVID Administration Insulin Aspart 3 - 6 units 06/24/24 08:00 06/26/24 12:17 Ins
[2024-06-26] MEDS: LOSARTAN POTASSIUM 12.5 MG TABLET PO (15:05)
[2024-06-26 17:06] LABS: Glucose Point of Care 155 mg/dl (65-105)
[2024-06-26] MEDS: SENNA/DOCUSATE SODIUM TABLET 1 TAB PO (21:10)
[2024-06-26] MEDS: SODIUM CHLORIDE 0.9% IV 1,000 ML 75 ML IV CONT (21:11)
[2024-06-26 21:55] LABS: Glucose Point of Care 195 mg/dl (65-105)
[2024-06-27] VITALS (14 sets, daily range): BP systolic 108–179; BP diastolic 58–82; PULSE 66–86; RESP 14–20; TEMP 36.1–37; O2SAT 95–100
[2024-06-27] MEDS: SODIUM CHLORIDE 0.9% IV 1,000 ML 75 ML IV CONT ×2 (04:56→18:50)
[2024-06-27 05:38] LABS: Basophils Absolute Auto 0.1 K/mm3 (0.0-0.1); Basophils Percent Auto 0.7 % (0.2-1.2); Eosinophils Absolute Auto 0.2 K/mm3 (0-0.3); Eosinophils Percent Auto 1.7 % (0-4.4); Hematocrit 38.7 % (37.0-47.0); Hemoglobin 12.1 g/dL (12.0-15.0); Immature Granulocyte Absolute 0.08 K/mm3 (0.00-0.031); Immature Granulocyte Percent A 0.7 % (0-0.5); Lymphocytes Absolute Auto 1.81 K/mm3 (0.9-3.2); Lymphocytes Percent Auto 15.4 % (18.3-44.2); Mean Corpuscular HGB Conc 31.3 g/dl (32-36); Mean Corpuscular Hemoglobin 26.5 pg (26-34); Mean Corpuscular Volume 84.9 fl (80-100); Mean Platelet Volume 11.9 fl (7.4-10.4); Monocytes Absolute Auto 0.9 K/mm3 (0.1-0.6); Monocytes Percent Auto 7.8 % (2.6-8.5); Neutrophils Absolute Auto 8.7 K/mm3 (1.3-6.7); Neutrophils Percent Auto 73.7 % (45.5-73.1); Platelet Count Result 204 k/mm3 (150-375); Red Blood Count 4.56 M/mm3 (4.2-5.4); Red Cell Distribution Width 14.1 % (11.5-14.5); White Blood Count 11.7 K/mm3 (4.5-10.0)
[2024-06-27] MEDS: PIPERACILLN/TAZ 3.375GM/NS50ML 3.375 GM/50 ML BAG IVPB ×4 (05:40→23:52)
[2024-06-27] MEDS: metroNIDAZOLE 500 MG/ISO 100ML 500 MG/100 ML BAG 100 MG IVPB (05:40)
[2024-06-27 05:58] LABS: Alanine Aminotransferase 12 U/L (6-35); Albumin Level 3.3 g/dL (3.5-5.1); Alkaline Phosphatase 118 U/L (38-126); Anion Gap 6 mmol/L (4-12); Aspartate Amino Transferase 23 U/L (14-36); Bilirubin,Total 0.5 mg/dL (0.2-1.3); Blood Urea Nitrogen 5 mg/dL (7-17); Calcium 8.5 mg/dL (8.4-10.2); Carbon Dioxide 28 mmol/L (22-30); Chloride 101 mmol/L (98-107); Estimated CRCL calculation 86 ml/min; Estimated Glomerular Filt Rate > 60; Glucose 135 mg/dL (65-110); Potassium 3.4 mmol/L (3.4-5.0); Sodium 135 mmol/L (137-145)
[2024-06-27 07:44] LABS: Glucose Point of Care 134 mg/dl (65-105)
--- NOTE | 2024-06-27 08:21 | PM.IMPN ---
Progress Note: A&P Assessment and Plan (1) Sepsis: Code(s): A41.9 - Sepsis, unspecified organism Status: Acute Assessment and Plan: Meets SIRS criteria: febrile, leukocytosis, suspected source of infection - lactic acid: 0.8 - WBC downtrending - fluid resuscitation - suspected source: cholecystitis - blood cultures drawn on 06/24: NGTD - UA nonconcerning for infection - CT abdomen/pelvis: Worsened acute cholecystitis. 12 mm right kidney mass which may be a hemorrhagic cyst or less likely a neoplasm. - Antibiotics: flagyl and zosyn (2) Acute cholecystitis: Code(s): K81.0 - Acute cholecystitis Status: Acute Assessment and Plan: - CT abdomen/pelvis: Worsened acute cholecystitis. 12 mm right kidney mass which may be a hemorrhagic cyst or less likely a neoplasm. - RUQ US: acute cholecystitis with gallstones noted. Positive murphys sign. - Bili and LFTs WNL - Antibiotics: started on Rocephin and Flagyl 06/23, Rocephin changed to Zosyn for better abdominal coverage on 06/24 - Surgery consulted Continue IV antibiotics Patient wishes to proceed with surgery. Cholecystectomy scheduled for tomorrow 06/27- plan for cholecystectomy (3) Right renal mass: Code(s): N28.89 - Other specified disorders of kidney and ureter Status: Acute Assessment and Plan: CT abdomen/pelvis: 12 mm right kidney mass which may be a hemorrhagic cyst or less likely a neoplasm. Abdomen MRI without and with contrast is recommended. - Can pursue MRI once acute symptoms resolve - Discussed with patient and she plans to follow up with PCP once back home (4) Hypertension: Code(s): I10 - Essential (primary) hypertension Status: Acute Assessment and Plan: Blood pressures are high due to pain; she has also been out of medications for 2 months. Resume antihypertensives. - amlodipine 10 mg daily - started on losartan 12.5 mg daily - hydralazine 10 mg PRN for systolic >180 - continue to monitor -stable- 143/82 (5) Type 2 diabetes mellitus: Code(s): E11.9 - Type 2 diabetes mellitus without complications Status: Acute Assessment and Plan: - hypoglycemia protocol - POC blood glucose ACHS - home medication - none, states she was recently taken off of metformin by her PCP - correct regimen ordered - low dose TIDWM and HS - A1C 6.3 Time Spent With Patient Time with patient: Greater than 35 minutes Subjective Date/time seen: 06/27/24 08:21 Interval history: 58-year-old female with history of deep venous thrombosis, type 2 diabetes mellitus, and hypertension who presented to the emergency department for evaluation of abdominal pain. Patient is pleasant lying comfortably in bed. She continues to have low-grade fevers and increased nausea /right upper quadrant pain with diet. She was evaluated by surgery today and plans to move forward with cholecystectomy tomorrow. Patient continues to have elevated blood pressures on her home amlodipine. Will start losartan 12.5 mg daily. She denies chest pain shortness a breath vomiting and changes in bladder. She does note that she has had bowel movement since starting the bowel regimen. 06/27- assuming care. NPO, plan for cholecystectomy today. Pt is in bed, alert, oriented, in no pain, denies n/v/d. Review of Systems Review of Systems: 12 systems were reviewed and are negative except for as per HPI. All systems reviewed & are unremarkable except as noted in HPI and below Exam Narrative: AF HR 81 RR 18 SPO2 97 BP 150/68 General: female in no acute respiratory distress who is nontoxic appearing, sitting up in bed HEENT: Normocephalic. Atraumatic. Extraocular movement intact. Sclera clear and anicteric. No facial asymmetry. Chest: Lungs are clear to auscultation bilaterally. No wheezes or crackles. CV: Heart was regular rate and rhythm. S1-S2. No murmurs, gallops, or rubs. Abd: Abdomen was soft. Tenderness to RUQ. Nondistended.
[2024-06-27] MEDS: amLODIPine BESYLATE 10 MG TABLET PO (09:30)
[2024-06-27] MEDS: LOSARTAN POTASSIUM 12.5 MG TABLET PO (09:30)
--- NOTE | 2024-06-27 09:59 | WPDHPUPDATE1 ---
History and Physical Update Update Date/Time: 06/27/24 09:59 History and Physical has been reviewed, including an updated exam of the patient. There are NO changes in the patient's condition. Risks, benefits, and alternatives have been discussed and questions answered. Patient agrees to proceed with procedure.
[2024-06-27 11:47] LABS: Glucose Point of Care 123 mg/dl (65-105)
[2024-06-27 13:23] LABS: Glucose Point of Care 125 mg/dl (65-105)
--- NOTE | 2024-06-27 14:28 | WPDANESEPPF ---
Anes - Initial Pre Proc Eval Procedure: Operation Date: 06/27/24 14:00 Proposed Procedures p Laparoscopic Cholecystectomy - Mulu Farah MD Date/Time: 06/27/24 14:28 Surgeon: Neida Andre PA-C Pre Op Diagnosis: acute cholecystitis Patient Data Age: 58 Gender: F Height: 1.7 m Weight: 166.3 kg Last Vital Signs Temp 98.1 F 06/27/24 13:00 Pulse 86 06/27/24 13:00 Resp 18 06/27/24 13:00 BP 143/82 H 06/27/24 13:00 Pulse Ox 99 06/27/24 13:00 O2 Del Method Room Air 06/27/24 13:00 Allergies Allergy/AdvReac Type Severity Reaction Status Date / Time No Known Allergies Allergy Verified 06/23/24 11:01 Home Medications Medication Instructions Recorded Confirmed Type Unable to Obtain Home Medications 06/23/24 06/23/24 History Laboratory Tests 06/26/24 06/26/24 06/27/24 16:55 21:21 05:01 WBC 11.7 H K/mm3 (4.5-10.0) RBC 4.56 M/mm3 (4.2-5.4) Hgb 12.1 g/dL (12.0-15.0) Hct 38.7 % (37.0-47.0) MCV 84.9 fl (80-100) MCH 26.5 pg (26-34) MCHC 31.3 L g/dl (32-36) RDW 14.1 % (11.5-14.5) Plt Count 204 k/mm3 (150-375) MPV 11.9 H fl (7.4-10.4) Immature Gran % (Auto) 0.7 H % (0-0.5) Neut % (Auto) 73.7 H % (45.5-73.1) Lymph % (Auto) 15.4 L % (18.3-44.2) [place] % (Auto) 7.8 % (2.6-8.5) Eos % (Auto) 1.7 % (0-4.4) Baso % (Auto) 0.7 % (0.2-1.2) Lymph # (Auto) 1.81 K/mm3 (0.9-3.2) [place] # (Auto) 0.9 H K/mm3 (0.1-0.6) Eos # (Auto) 0.2 K/mm3 (0-0.3) Baso # (Auto) 0.1 K/mm3 (0.0-0.1) Abs Immat Gran (auto) 0.08 H K/mm3 (0.00-0.031) Absolute Neuts (auto) 8.7 H K/mm3 (1.3-6.7) Absolute Nucleated RBC 0.000 K/mm3 (0.0-0.012) Nucleated RBC % 0.0 % (0.0-0.2) Sodium 135 L mmol/L (137-145) Potassium 3.4 mmol/L (3.4-5.0) Chloride 101 mmol/L (98-107) Carbon Dioxide 28 mmol/L (22-30) Anion Gap 6 mmol/L (4-12) BUN 5 L mg/dL (7-17) Creatinine 1.00 mg/dL (0.7-1.0) Estim Creat Clear Calc 86 ml/min Estimated GFR > 60 (59 - ) Glucose 135 H mg/dL (65-110) POC Capillary Glucose 155 H mg/dl 195 H mg/dl (65-105) (65-105) Calcium 8.5 mg/dL (8.4-10.2) Total Bilirubin 0.5 mg/dL (0.2-1.3) AST 23 U/L (14-36) ALT 12 U/L (6-35) Alkaline Phosphatase 118 U/L (38-126) Total Protein 7.0 g/dL (6.3-8.2) Albumin 3.3 L g/dL (3.5-5.1) 06/27/24 06/27/24 06/27/24 07:23 11:29 13:19 WBC RBC Hgb Hct MCV MCH MCHC RDW Plt Count MPV Immature Gran % (Auto) Neut % (Auto) Lymph % (Auto) [place] % (Auto) Eos % (Auto) Baso % (Auto) Lymph # (Auto) [place] # (Auto) Eos # (Auto) Baso # (Auto) Abs Immat Gran (auto) Absolute Neuts (auto) Absolute Nucleated RBC Nucleated RBC % Sodium Potassium Chloride Carbon Dioxide Anion Gap BUN Creatinine Estim Creat Clear Calc Estimated GFR Glucose POC Capillary Glucose 134 H mg/dl 123 H mg/dl 125 H mg/dl (65-105) (65-105) (65-105) Calcium Total Bilirubin AST ALT Alkaline Phosphatase Total Protein Albumin Patient hx anesthesia problems: none Family hx anesthesia problems: none Results Review: All pre-o
[2024-06-27] MEDS: BUPIVACAINE/EPINEPHRINE 0.5% 50 ML VIAL 30 ML INFILTRATE (14:37)
[2024-06-27] MEDS: LACTATED RINGERS 1,000 ML 30 ML IV CONT (16:40)
[2024-06-27 16:58] LABS: Glucose Point of Care 140 mg/dl (65-105)
--- NOTE | 2024-06-27 16:59 | W.PM.PROC2 ---
Procedure Note - Detailed Date of Procedure 06/27/24 Pre-op Diagnosis acute cholecystitis Post-op Diagnosis Other ( Acute gangrenous cholecystitis) Procedure Performed laparoscopic cholecystectomy with extensive lysis of adhesions Surgeon Mulu Farah MD Anesthesia General and Local Indications 58-year-old female presenting to the emergency department with severe cholecystitis, cholelithiasis Findings acute gangrenous cholecystitis, extensive inflammation with significant omental and transverse colon adhesions Description of Procedure The patient was taken to the operating room placed in the supine position. After adequate induction of general anesthesia, the patient was prepped and draped in normal sterile fashion. A time-out was then performed to verify the patient's identity as well as the procedure being performed. I then made a 5 mm incision in the infraumbilical region. Through this, a Veress needle was placed into the peritoneal cavity and CO2 gas was then insufflated. After adequate pneumoperitoneum was achieved, the Veress needle was removed and a 5 mm optiview trocar was placed through this incision under direct visualization. I then placed the laparoscope through this trocar site and under direct visualization placed a further 12 mm subxiphoid port as well as 2 additional 5 mm ports in the right upper abdomen. A large inflammatory mass was noted in the right upper quadrant. Using very careful blunt dissection, I was able to slowly and tediously separate the transverse colon, stomach, omentum off this inflammatory mass. The gallbladder was then identified and was noted to be severely inflamed, distended, and full of gallstones. Given the amount of inflammation, the gallbladder was decompressed. It was noted at this point the patient had acute gangrenous, suppurative cholecystitis. Once decompressed, I was able to place a grasper at the dome of the gallbladder and this was retracted anterior and cephalad up over the liver. A 2nd retractor was then placed at the infundibulum and retracted laterally, this allowed visualization of the triangle of [place]. I then was able to visualize the cystic duct in its entirety from its proximal insertion into the gallbladder, to its distal junction with the common hepatic/common bile duct junction. At this point, I carefully skeletonized the proximal cystic duct with the [place] dissector. This dissection was again very tedious given the amount of induration and friability of the tissue. I then clipped and transected the proximal cystic duct. Next I visualized the cystic artery. Again the artery was skeletonized, clipped, and transected. I then used the Bovie cautery to take down the peritoneal attachments of the gallbladder off the liver bed. This was very difficult given the amount of inflammation in the posterior space. Once the gallbladder specimen was completely detached, an endo-pouch was placed through the 12 mm port site. I then placed the gallbladder specimen into the Endo pouch and removed the endo-pouch from the 12 mm port site. Please note that the incision had to be enlarged to allow extraction of the gallbladder. The specimen will now be sent to pathology for further review. I then copiously irrigated the right upper quadrant. Some mild oozing was noted in the liver bed and this was controlled with the bovie cautery. Hemostasis was noted in the liver bed, the clips were noted to be in good position on both the cystic duct stump and the cystic artery stump. No other pathology was noted in the right upper quadrant. I then decided to place a 19 [place] ALESIA drain in the right upper quadrant coming out through the lateral right 5 mm port given the amount of inflammation and infection of the gallbladder. I then moved the laparoscope to the subxiphoid port. No iatrogenic injury or other pathology was noted in the lower abdomen. I then closed the 12 mm trocar site under direct visualization
[2024-06-27] MEDS: fentaNYL CITRATE INJ (*CRX) 100 MCG/2 ML VIAL 25 MCG IV PUSH ×2 (17:00→17:05)
[2024-06-27] MEDS: HYDROmorphone HCL INJ (*CRX) 1 MG/ML SYR IV PUSH (17:24)
[2024-06-27] MEDS: MORPHINE SULFATE (*CRX) 2 MG/ML INJ IV PUSH (18:49)
--- NOTE | 2024-06-27 20:34 | PC.NURSE ---
MOVED PT PER BED TO ROOM 259
[2024-06-27] MEDS: SENNA/DOCUSATE SODIUM TABLET 1 TAB PO (20:38)
[2024-06-27] MEDS: INSULIN ASPART (*BKC) 100 UNITS/ML SUB-Q (20:46)
[2024-06-27] MEDS: HYDROcodone/acetaminophen (*CRX) 5-325 MG TABLET 1 TAB PO (20:47)
[2024-06-27 22:07] LABS: Glucose Point of Care 215 mg/dl (65-105)
[2024-06-28] VITALS (7 sets, daily range): BP systolic 154–193; BP diastolic 58–77; PULSE 63–98; RESP 12–20; TEMP 36.5–37; O2SAT 98–100
[2024-06-28] MEDS: PIPERACILLN/TAZ 3.375GM/NS50ML 3.375 GM/50 ML BAG IVPB ×4 (05:26→23:51)
[2024-06-28 05:34] LABS: Basophils Absolute Auto 0.1 K/mm3 (0.0-0.1); Basophils Percent Auto 0.4 % (0.2-1.2); Hemoglobin 13.1 g/dL (12.0-15.0); Immature Granulocyte Absolute 0.11 K/mm3 (0.00-0.031); Immature Granulocyte Percent A 0.8 % (0-0.5); Lymphocytes Absolute Auto 1.12 K/mm3 (0.9-3.2); Lymphocytes Percent Auto 8.4 % (18.3-44.2); Mean Corpuscular HGB Conc 31.2 g/dl (32-36); Mean Corpuscular Hemoglobin 26.5 pg (26-34); Mean Corpuscular Volume 84.8 fl (80-100); Mean Platelet Volume 11.2 fl (7.4-10.4); Monocytes Absolute Auto 0.6 K/mm3 (0.1-0.6); Monocytes Percent Auto 4.3 % (2.6-8.5); Neutrophils Absolute Auto 11.4 K/mm3 (1.3-6.7); Neutrophils Percent Auto 86.1 % (45.5-73.1); Platelet Count Result 265 k/mm3 (150-375); Red Blood Count 4.95 M/mm3 (4.2-5.4); White Blood Count 13.3 K/mm3 (4.5-10.0)
[2024-06-28 05:57] LABS: Alanine Aminotransferase 21 U/L (6-35); Albumin Level 3.6 g/dL (3.5-5.1); Alkaline Phosphatase 115 U/L (38-126); Anion Gap 10 mmol/L (4-12); Aspartate Amino Transferase 46 U/L (14-36); Bilirubin,Total 0.4 mg/dL (0.2-1.3); Blood Urea Nitrogen 8 mg/dL (7-17); Calcium 8.9 mg/dL (8.4-10.2); Carbon Dioxide 28 mmol/L (22-30); Chloride 98 mmol/L (98-107); Estimated CRCL calculation 96 ml/min; Estimated Glomerular Filt Rate > 60; Glucose 170 mg/dL (65-110); Potassium 3.4 mmol/L (3.4-5.0); Sodium 136 mmol/L (137-145)
--- NOTE | 2024-06-28 08:04 | PM.IMPN ---
Progress Note: A&P Assessment and Plan (1) Sepsis: Code(s): A41.9 - Sepsis, unspecified organism Status: Acute Assessment and Plan: Meets SIRS criteria: febrile, leukocytosis, suspected source of infection - lactic acid: 0.8 - WBC downtrending - fluid resuscitation - suspected source: cholecystitis - blood cultures drawn on 06/24: NGTD - UA nonconcerning for infection - CT abdomen/pelvis: Worsened acute cholecystitis. 12 mm right kidney mass which may be a hemorrhagic cyst or less likely a neoplasm. - Antibiotics: flagyl and zosyn 06/28 continue zosyn (2) Acute cholecystitis: Code(s): K81.0 - Acute cholecystitis Status: Acute Assessment and Plan: - CT abdomen/pelvis: Worsened acute cholecystitis. 12 mm right kidney mass which may be a hemorrhagic cyst or less likely a neoplasm. - RUQ US: acute cholecystitis with gallstones noted. Positive murphys sign. - Bili and LFTs WNL - Antibiotics: started on Rocephin and Flagyl 06/23, Rocephin changed to Zosyn for better abdominal coverage on 06/24 - Surgery consulted Continue IV antibiotics Patient wishes to proceed with surgery. Cholecystectomy scheduled for tomorrow 06/27- plan for cholecystectomy Findings:acute gangrenous cholecystitis, extensive inflammation with significant omental and transverse colon adhesions. 06/28- postop day 1- s/p difficult yuan with drain placement, cont drain and abx, pain control, ADAT, encourage out if bed and IS (3) Right renal mass: Code(s): N28.89 - Other specified disorders of kidney and ureter Status: Acute Assessment and Plan: CT abdomen/pelvis: 12 mm right kidney mass which may be a hemorrhagic cyst or less likely a neoplasm. Abdomen MRI without and with contrast is recommended. - Can pursue MRI once acute symptoms resolve - Discussed with patient and she plans to follow up with PCP once back home (4) Hypertension: Code(s): I10 - Essential (primary) hypertension Status: Acute Assessment and Plan: Blood pressures are high due to pain; she has also been out of medications for 2 months. Resume antihypertensives. - amlodipine 10 mg daily - started on losartan 12.5 mg daily - hydralazine 10 mg PRN for systolic >180 - continue to monitor -stable- 143/82 06/28- BP elevated. has hydralazine PRN. will increase losartan to 25 mg daily instead of 12.5 (5) Type 2 diabetes mellitus: Code(s): E11.9 - Type 2 diabetes mellitus without complications Status: Acute Assessment and Plan: - hypoglycemia protocol - POC blood glucose ACHS - home medication - none, states she was recently taken off of metformin by her PCP - correct regimen ordered - low dose TIDWM and HS - A1C 6.3 Time Spent With Patient Time with patient: Greater than 35 minutes Subjective Date/time seen: 06/28/24 08:04 Interval history: 58-year-old female with history of deep venous thrombosis, type 2 diabetes mellitus, and hypertension who presented to the emergency department for evaluation of abdominal pain. Patient is pleasant lying comfortably in bed. She continues to have low-grade fevers and increased nausea /right upper quadrant pain with diet. She was evaluated by surgery today and plans to move forward with cholecystectomy tomorrow. Patient continues to have elevated blood pressures on her home amlodipine. Will start losartan 12.5 mg daily. She denies chest pain shortness a breath vomiting and changes in bladder. She does note that she has had bowel movement since starting the bowel regimen. 06/27- assuming care. NPO, plan for cholecystectomy today. Pt is in bed, alert, oriented, in no pain, denies n/v/d. 06/28- pt is seen and examined. BP elevated- will increase losartan to 25 mg daily. laparoscopic cholecystectomy with extensive lysis of adhesions with DR Farah 06/27 doing well- pain is well controlled. encouraged to ambulate. Review of Systems Review of Systems: 12 systems were
[2024-06-28 08:29] LABS: Glucose Point of Care 148 mg/dl (65-105)
--- NOTE | 2024-06-28 08:38 | PM.PNGS ---
Progress Note: A&P Assessment and Plan (1) Acute cholecystitis: Code(s): K81.0 - Acute cholecystitis Status: Acute Assessment and Plan: s/p difficult yuan c drain placement, cont drain and abx, pain control, ADAT, encourage OOB/IS Subjective Subjective Date/Time Seen: 06/28/24 08:38 Interval history: c/o incisional and gas pain Review of Systems Review of Systems: All systems reviewed & are unremarkable except as noted in HPI and below Exam Const: General: cooperative, no acute distress and uncomfortable Resp: Auscultation: clear to auscultation bilaterally Cardio: Rate: regular rate Rhythm: regular rhythm GI: Inspection: normal to inspection, distended and incision GI Palp: Yes abdominal tenderness and Yes Soft to palpation Objective Data Vital Signs Vital Signs: Vital Signs - 24 hr 06/27/24 09:30 06/27/24 12:00 06/27/24 13:00 Temperature 37.0 C 36.7 C Pulse Rate 78 86 Respiratory Rate 16 18 Blood Pressure 151/69 H 143/82 H Pulse Oximetry 97 99 Oxygen Delivery Room Air Room Air Oxygen Flow Rate 06/27/24 16:40 06/27/24 16:55 06/27/24 17:10 Temperature 36.1 C L Pulse Rate 71 68 72 Respiratory Rate 16 14 20 Blood Pressure 149/69 H 169/75 H 173/74 H Pulse Oximetry 100 100 95 Oxygen Delivery Simple Face Mask Simple Face Mask Room Air Oxygen Flow Rate 8 8 06/27/24 17:25 06/27/24 17:40 06/27/24 17:55 Temperature Pulse Rate 71 76 73 Respiratory Rate 18 17 18 Blood Pressure 174/72 H 171/76 H 179/79 H Pulse Oximetry 100 100 100 Oxygen Delivery Nasal Cannula Nasal Cannula Nasal Cannula Oxygen Flow Rate 2 2 2 06/27/24 18:10 06/27/24 19:25 06/27/24 20:25 Temperature 36.6 C 36.3 C L Pulse Rate 70 73 69 Respiratory Rate 17 16 19 Blood Pressure 166/75 H 179/73 H 108/75 Pulse Oximetry 100 100 98 Oxygen Delivery Nasal Cannula Oxygen Flow Rate 2 06/28/24 00:00 06/28/24 04:00 Temperature 36.8 C 37.0 C Pulse Rate 70 70 Respiratory Rate 19 14 Blood Pressure 163/65 H 193/72 H Pulse Oximetry 100 99 Oxygen Delivery Oxygen Flow Rate Intake/Output Intake/Output: Intake & Output 06/25/24 06/26/24 06/27/24 06/28/24 23:59 23:59 23:59 23:59 Intake Total 3646.2 3370 2081.3 50 Output Total 70 70 Balance 3646.2 3370 2010.3 -20 Meds/Results Medications: Active Medications Generic Name Dose Route Start Last Admin Trade Name Freq PRN Reason Stop Dose Admin Acetaminophen 650 mg 06/23/24 14:30 06/24/24 06:34 Acetaminophen 325 Mg Tablet PO 650 mg Q6H PRN Administration Mild Pain (1-3) or Fever Hydrocodone Bitart/Acetaminophen 1 tab 06/23/24 14:30 06/26/24 21:10 Hydrocodone/Acetaminophen (*Crx) 5-325 Mg Tablet PO 1 tab Q6H PRN Administration Pain Rated 4-6 Hydrocodone Bitart/Acetaminophen 1 tab 06/27/24 18:19 06/27/24 20:47 Hydrocodone/Acetaminophen (*Crx) 5-325 Mg Tablet PO 1 tab Q4H PRN Administration Pain Rated 4-6 Amlodipine Besylate 10 mg 06/24/24 09:00 06/27/24 09:30 Amlodipine Besylate 10 Mg Tablet PO 10 mg DAILY DAVID Administration Dextrose 12.5 gm 06/23/24 21:32 Dextrose 50% 25 Gm/50 Ml Syringe IV PUSH PRN PRN Hypoglycemia Protocol Glucagon 1 mg 06/23/24 21:32 Glucagon For Inj 1 Mg Vial IM PRN PRN Hypoglycemia Protocol Glucose 15 gm 06/23/24 21:32 Glucose Oral Gel 15 Gm Of Glucse In 37.5 Gm Tube PO PRN PRN Hypoglycemia Protocol Hydralazine HCl 10 mg 06/24/24 14:11 06/24/24 16:00 Hydralazine Hcl 20 Mg/Ml Vial IV PUSH 10 mg Q8H PRN Administration Systolic > 180 Dextrose 1,000 mls @ 100 mls/hr 06/23/24 21:32 Dextrose 5% 1,000 Ml IVPB PRN PRN Hypoglycemia Protocol Sodium Chloride 1,000 mls @ 75 mls/hr 06/24/24 07:20 06/27/24 18:50 Normal Saline Iv IV CONT 75 mls/hr .[id number] DAVID Administration Piperacillin/Tazobactam/Dextrose 3.375 gm in 50 mls @ 100 mls/hr
[2024-06-28] MEDS: HYDROcodone/acetaminophen (*CRX) 5-325 MG TABLET 1 TAB PO ×3 (08:58→23:52)
[2024-06-28] MEDS: LOSARTAN POTASSIUM 25 MG TABLET PO (08:58)
[2024-06-28] MEDS: amLODIPine BESYLATE 10 MG TABLET PO (08:59)
[2024-06-28 11:54] LABS: Glucose Point of Care 172 mg/dl (65-105)
--- NOTE | 2024-06-28 14:37 | P.PNAN_ITS ---
Anes - Prog Note Post-Op Date/Time: 06/28/24 14:37 Cardiovascular status: normal Respiratory status: normal Airway patency: baseline Mental status: baseline Post-Op hydration status: normal Vital Signs: Last Vital Signs Temp 36.6 C 06/28/24 10:00 Pulse 63 06/28/24 10:00 Resp 14 06/28/24 10:00 BP 166/65 H 06/28/24 10:00 Pulse Ox 98 06/28/24 10:00 O2 Del Method Room Air 06/28/24 09:00 O2 Flow Rate 2 06/27/24 18:10 Pain Score (VAS): 02/21 I/O: Intake & Output 06/27/24 06/28/24 06/28/24 23:59 07:59 15:59 Intake Total 1350 100 240 Output Total 70 70 Balance 1280 30 240 Laboratory Tests 06/28/24 05:23 06/28/24 05:23 06/27/24 06/27/24 06/28/24 16:55 20:42 05:23 WBC 13.3 H RBC 4.95 Hgb 13.1 Hct 42.0 MCV 84.8 MCH 26.5 MCHC 31.2 L RDW 14.0 Plt Count 265 MPV 11.2 H Immature Gran % (Auto) 0.8 H Neut % (Auto) 86.1 H Lymph % (Auto) 8.4 L [place] % (Auto) 4.3 Eos % (Auto) 0.0 Baso % (Auto) 0.4 Lymph # (Auto) 1.12 [place] # (Auto) 0.6 Eos # (Auto) 0.0 Baso # (Auto) 0.1 Abs Immat Gran (auto) 0.11 H Absolute Neuts (auto) 11.4 H Absolute Nucleated RBC 0.000 Nucleated RBC % 0.0 Sodium 136 L Potassium 3.4 Chloride 98 Carbon Dioxide 28 Anion Gap 10 BUN 8 Creatinine 0.90 Estim Creat Clear Calc 96 Estimated GFR > 60 Glucose 170 H POC Capillary Glucose 140 H 215 H Calcium 8.9 Total Bilirubin 0.4 AST 46 H ALT 21 Alkaline Phosphatase 115 Total Protein 7.0 Albumin 3.6 06/28/24 06/28/24 08:22 11:39 WBC RBC Hgb Hct MCV MCH MCHC RDW Plt Count MPV Immature Gran % (Auto) Neut % (Auto) Lymph % (Auto) [place] % (Auto) Eos % (Auto) Baso % (Auto) Lymph # (Auto) [place] # (Auto) Eos # (Auto) Baso # (Auto) Abs Immat Gran (auto) Absolute Neuts (auto) Absolute Nucleated RBC Nucleated RBC % Sodium Potassium Chloride Carbon Dioxide Anion Gap BUN Creatinine Estim Creat Clear Calc Estimated GFR Glucose POC Capillary Glucose 148 H 172 H Calcium Total Bilirubin AST ALT Alkaline Phosphatase Total Protein Albumin Post-procedural complaints: none Patient Feedback: Patient satisfied with anesthetic care.
--- NOTE | 2024-06-28 14:48 | PC.NURSE ---
Patient has been noted to be refusing to ambulate to the bathroom to urinate, and has instead been incontinent in the bed and changing the chucks/depends underneath herself independently. Patient care techs have offered to take the patient more frequently to the bathroom, as well as offering to get the patient up to a chair. Patient has refused, stating to the patient care techs that she knows her rights and will not get up unless a doctor tells her to. RN was notified and the provider was notified, who then came and spoke to the patient regarding this issue. RN will pass along this message to the surgical team, to continue education regarding importance of ambulation post surgical procedure.
--- NOTE | 2024-06-28 14:58 | P.CDI_ITS ---
CDI Query Clarification Request Patient with a BMI of 54.5 please provide a diagnosis to accompany this finding: * Overweight * Obesity * Morbid Obesity * Other/Unknown <Deandra Reyes RN - Last Filed: 06/28/24 14:59> Clarified Diagnosis Clarified Diagnosis: * Morbid Obesity <Ines Acosta APRN - Last Filed: 06/28/24 15:19>
--- NOTE | 2024-06-28 14:58 | WPDCDIQUERY2 ---
CDI Query Clarification Request Patient with a BMI of 54.5 please provide a diagnosis to accompany this finding: Overweight Obesity Morbid Obesity Other/Unknown <Deandra Reyes RN - Last Filed: 06/28/24 14:59> Clarified Diagnosis Clarified Diagnosis: Morbid Obesity <Ines Acosta APRN - Last Filed: 06/28/24 15:19>
[2024-06-28 17:16] LABS: Glucose Point of Care 136 mg/dl (65-105)
[2024-06-28] MEDS: SENNA/DOCUSATE SODIUM TABLET 1 TAB PO (20:38)
[2024-06-28 22:53] LABS: Glucose Point of Care 163 mg/dl (65-105)
[2024-06-29] VITALS: BP 168/62; PULSE 60; RESP 20; TEMP 36.5; O2SAT 100
[2024-06-29 04:39] VITALS: BP 154/61; PULSE 60; RESP 20; TEMP 36.5; O2SAT 99
[2024-06-29 05:12] LABS: Basophils Absolute Auto 0.1 K/mm3 (0.0-0.1); Basophils Percent Auto 0.8 % (0.2-1.2); Eosinophils Absolute Auto 0.3 K/mm3 (0-0.3); Eosinophils Percent Auto 2.3 % (0-4.4); Hematocrit 38.7 % (37.0-47.0); Hemoglobin 12.1 g/dL (12.0-15.0); Immature Granulocyte Absolute 0.13 K/mm3 (0.00-0.031); Immature Granulocyte Percent A 1.2 % (0-0.5); Lymphocytes Absolute Auto 2.57 K/mm3 (0.9-3.2); Lymphocytes Percent Auto 22.9 % (18.3-44.2); Mean Corpuscular HGB Conc 31.3 g/dl (32-36); Mean Corpuscular Hemoglobin 26.5 pg (26-34); Mean Corpuscular Volume 84.9 fl (80-100); Mean Platelet Volume 11.2 fl (7.4-10.4); Monocytes Absolute Auto 0.8 K/mm3 (0.1-0.6); Monocytes Percent Auto 7.3 % (2.6-8.5); Neutrophils Absolute Auto 7.4 K/mm3 (1.3-6.7); Neutrophils Percent Auto 65.5 % (45.5-73.1); Platelet Count Result 310 k/mm3 (150-375); Red Blood Count 4.56 M/mm3 (4.2-5.4); Red Cell Distribution Width 14.1 % (11.5-14.5); White Blood Count 11.2 K/mm3 (4.5-10.0)
[2024-06-29 05:25] LABS: Alanine Aminotransferase 17 U/L (6-35); Albumin Level 3.3 g/dL (3.5-5.1); Alkaline Phosphatase 98 U/L (38-126); Anion Gap 5 mmol/L (4-12); Aspartate Amino Transferase 30 U/L (14-36); Bilirubin,Total 0.3 mg/dL (0.2-1.3); Blood Urea Nitrogen 6 mg/dL (7-17); Carbon Dioxide 33 mmol/L (22-30); Chloride 99 mmol/L (98-107); Estimated CRCL calculation 88 ml/min; Estimated Glomerular Filt Rate > 60; Glucose 146 mg/dL (65-110); Potassium 3.2 mmol/L (3.4-5.0); Sodium 137 mmol/L (137-145)
[2024-06-29] MEDS: PIPERACILLN/TAZ 3.375GM/NS50ML 3.375 GM/50 ML BAG IVPB ×2 (06:09→12:22)
--- NOTE | 2024-06-29 07:45 | PM.IMPN ---
Progress Note: A&P Assessment and Plan (1) Sepsis: Code(s): A41.9 - Sepsis, unspecified organism Status: Acute Assessment and Plan: Meets SIRS criteria: febrile, leukocytosis, suspected source of infection - lactic acid: 0.8 - WBC downtrending - fluid resuscitation - suspected source: cholecystitis - blood cultures drawn on 06/24: NGTD - UA nonconcerning for infection - CT abdomen/pelvis: Worsened acute cholecystitis. 12 mm right kidney mass which may be a hemorrhagic cyst or less likely a neoplasm. - Antibiotics: flagyl and zosyn 06/28 continue zosyn 06/29- WBC improving-11.2 today (down from 13.3), remains afebrile completed course of zosyn (2) Acute cholecystitis: Code(s): K81.0 - Acute cholecystitis Status: Acute Assessment and Plan: - CT abdomen/pelvis: Worsened acute cholecystitis. 12 mm right kidney mass which may be a hemorrhagic cyst or less likely a neoplasm. - RUQ US: acute cholecystitis with gallstones noted. Positive murphys sign. - Bili and LFTs WNL - Antibiotics: started on Rocephin and Flagyl 06/23, Rocephin changed to Zosyn for better abdominal coverage on 06/24 - Surgery consulted Continue IV antibiotics Patient wishes to proceed with surgery. Cholecystectomy scheduled for tomorrow 06/27- plan for cholecystectomy Findings:acute gangrenous cholecystitis, extensive inflammation with significant omental and transverse colon adhesions. 06/28- postop day 1- s/p difficult yuan with drain placement, cont drain and abx, pain control, ADAT, encourage out if bed and IS 06/29 postop day 2. drain in [address], surgery is following (3) Right renal mass: Code(s): N28.89 - Other specified disorders of kidney and ureter Status: Acute Assessment and Plan: CT abdomen/pelvis: 12 mm right kidney mass which may be a hemorrhagic cyst or less likely a neoplasm. Abdomen MRI without and with contrast is recommended. - Can pursue MRI once acute symptoms resolve - Discussed with patient and she plans to follow up with PCP once back home (4) Hypertension: Code(s): I10 - Essential (primary) hypertension Status: Acute Assessment and Plan: Blood pressures are high due to pain; she has also been out of medications for 2 months. Resume antihypertensives. - amlodipine 10 mg daily - started on losartan 12.5 mg daily - hydralazine 10 mg PRN for systolic >180 - continue to monitor -stable- 143/82 06/28- BP elevated. has hydralazine PRN. will increase losartan to 25 mg daily instead of 12.5 (5) Type 2 diabetes mellitus: Code(s): E11.9 - Type 2 diabetes mellitus without complications Status: Acute Assessment and Plan: - hypoglycemia protocol - POC blood glucose ACHS - home medication - none, states she was recently taken off of metformin by her PCP - correct regimen ordered - low dose TIDWM and HS - A1C 6.3 (6) Morbid (severe) obesity due to excess calories: Code(s): E66.01 - Morbid (severe) obesity due to excess calories Status: Acute Assessment and Plan: was on metformin but taken off per pcp in order to prevent metabolic complications of morbid obesity- will be a good candidate for GLP-1 upon discharge as will provide weight loss benefits in addition to t2dm control Time Spent With Patient Time with patient: Greater than 35 minutes Subjective Date/time seen: 06/29/24 07:45 Interval history: 58-year-old female with history of deep venous thrombosis, type 2 diabetes mellitus, and hypertension who presented to the emergency department for evaluation of abdominal pain. Patient is pleasant lying comfortably in bed. She continues to have low-grade fevers and increased nausea /right upper quadrant pain with diet. She was evaluated by surgery today and plans to move forward with cholecystectomy tomorrow. Patient continues to have elevated blood pressures on her home amlodipine. Will start losartan 12.5 mg daily. She denies chest p
[2024-06-29] MEDS: LOSARTAN POTASSIUM 25 MG TABLET PO (08:26)
[2024-06-29] MEDS: amLODIPine BESYLATE 10 MG TABLET PO (08:26)
[2024-06-29] MEDS: HYDROcodone/acetaminophen (*CRX) 5-325 MG TABLET 1 TAB PO ×3 (08:27→23:39)
[2024-06-29 08:31] LABS: Glucose Point of Care 127 mg/dl (65-105)
[2024-06-29 10:00] VITALS: BP 168/69; PULSE 66; RESP 14; TEMP 36.9; O2SAT 99
[2024-06-29] MEDS: POTASSIUM CHLORIDE 20 MEQ PACKET (FOR LIQUID) PO (10:51)
[2024-06-29 12:03] LABS: Glucose Point of Care 165 mg/dl (65-105)
--- NOTE | 2024-06-29 13:12 | PM.PNGS ---
Progress Note: A&P Assessment and Plan (1) Acute cholecystitis: Code(s): K81.0 - Acute cholecystitis Status: Acute Assessment and Plan: doing well, ALESIA dc'd at bedside, home soon c routine postop care and po analgesia, f/u 2 wks Subjective Subjective Date/Time Seen: 06/29/24 13:12 Interval history: feels good, nuha diet, pain controlled Review of Systems Review of Systems: All systems reviewed & are unremarkable except as noted in HPI and below Exam Const: General: cooperative and comfortable Resp: Auscultation: clear to auscultation bilaterally Cardio: Rate: regular rate Rhythm: regular rhythm GI: Inspection: normal to inspection and non-distended GI Palp: No abdominal tenderness and Yes Soft to palpation Objective Data Vital Signs Vital Signs: Vital Signs - 24 hr 06/28/24 14:00 06/28/24 18:00 06/28/24 21:51 Temperature 36.8 C 36.8 C 36.5 C Pulse Rate 98 63 74 Respiratory Rate 12 12 20 Blood Pressure 170/66 H 154/77 H 173/61 H Pulse Oximetry 100 100 100 Oxygen Delivery 06/29/24 00:00 06/29/24 04:39 06/29/24 10:00 Temperature 36.5 C 36.5 C 36.9 C Pulse Rate 60 60 66 Respiratory Rate 20 20 14 Blood Pressure 168/62 H 154/61 H 168/69 H Pulse Oximetry 100 99 99 Oxygen Delivery 06/29/24 08:20 Temperature Pulse Rate Respiratory Rate Blood Pressure Pulse Oximetry Oxygen Delivery Room Air Intake/Output Intake/Output: Intake & Output 06/26/24 06/27/24 06/28/24 06/29/24 23:59 23:59 23:59 23:59 Intake Total 3370 2081.3 1230 390 Output Total 70 70 20 Balance 3370 2010.3 1160 370 Meds/Results Medications: Active Medications Generic Name Dose Route Start Last Admin Trade Name Freq PRN Reason Stop Dose Admin Acetaminophen 650 mg 06/23/24 14:30 06/24/24 06:34 Acetaminophen 325 Mg Tablet PO 650 mg Q6H PRN Administration Mild Pain (1-3) or Fever Hydrocodone Bitart/Acetaminophen 1 tab 06/27/24 18:19 06/29/24 08:27 Hydrocodone/Acetaminophen (*Crx) 5-325 Mg Tablet PO 1 tab Q4H PRN Administration Pain Rated 4-6 Amlodipine Besylate 10 mg 06/24/24 09:00 06/29/24 08:26 Amlodipine Besylate 10 Mg Tablet PO 10 mg DAILY DAVID Administration Dextrose 12.5 gm 06/23/24 21:32 Dextrose 50% 25 Gm/50 Ml Syringe IV PUSH PRN PRN Hypoglycemia Protocol Glucagon 1 mg 06/23/24 21:32 Glucagon For Inj 1 Mg Vial IM PRN PRN Hypoglycemia Protocol Glucose 15 gm 06/23/24 21:32 Glucose Oral Gel 15 Gm Of Glucse In 37.5 Gm Tube PO PRN PRN Hypoglycemia Protocol Hydralazine HCl 10 mg 06/24/24 14:11 06/24/24 16:00 Hydralazine Hcl 20 Mg/Ml Vial IV PUSH 10 mg Q8H PRN Administration Systolic > 180 Dextrose 1,000 mls @ 100 mls/hr 06/23/24 21:32 Dextrose 5% 1,000 Ml IVPB PRN PRN Hypoglycemia Protocol Piperacillin/Tazobactam/Dextrose 3.375 gm in 50 mls @ 100 mls/hr 06/24/24 14:00 06/29/24 12:22 Zosyn 3.375 Gm/Ns 50 Ml IVPB 100 mls/hr Q6HR DAVID Administration Insulin Aspart 3 - 6 units 06/24/24 08:00 06/29/24 12:23 Insulin Aspart (*Bkc) 100 Units/Ml SUB-Q Not Given TIDWM [facility] Protocol Insulin Aspart 1 - 3 units 06/24/24 21:00 06/28/24 22:05 Insulin Aspart (*Bkc) 100 Units/Ml SUB-Q Not Given HS [facility] Protocol Losartan Potassium 25 mg 06/28/24 09:00 06/29/24 08:26 Losartan Potassium 25 Mg Tablet PO 25 mg DAILY DAVID Administration Morphine Sulfate 2 mg 06/23/24 14:30 06/27/24 18:49 Morphine Sulfate (*Crx) 2 Mg/Ml Inj IV PUSH 2 mg Q4H PRN Administration Pain Rated 7-10 Ondansetron HCl 4 mg 06/23/24 14:30 Ondansetron Inj 4 Mg/2 Ml Vial IV PUSH Q6H PRN Nausea And Vomiting Potassium Chloride 20 meq 06/29/24 09:00 06/29/24 10:51 Potassium Chloride 20 Meq Packet (For Liquid) PO 20 meq DAILY DAVID Administration Senna/Docusate Sodium 1 tab 06/24/24 21:00
[2024-06-29 14:00] VITALS: BP 167/62; PULSE 64; RESP 14; TEMP 36.4; O2SAT 100
[2024-06-29 17:09] LABS: Glucose Point of Care 138 mg/dl (65-105)
[2024-06-29 18:00] VITALS: BP 169/68; PULSE 65; RESP 12; TEMP 36.4; O2SAT 98
[2024-06-29] MEDS: SENNA/DOCUSATE SODIUM TABLET 1 TAB PO (20:30)
[2024-06-29 21:33] VITALS: BP 174/67; PULSE 59; RESP 18; TEMP 36.8; O2SAT 100
[2024-06-29 21:47] LABS: Glucose Point of Care 138 mg/dl (65-105)
[2024-06-30 00:45] VITALS: BP 188/67; PULSE 72; RESP 20; TEMP 36.8; O2SAT 98
[2024-06-30 05:41] VITALS: BP 173/67; PULSE 73; RESP 18; TEMP 36.8; O2SAT 98
[2024-06-30 08:07] LABS: Glucose Point of Care 196 mg/dl (65-105)
[2024-06-30 08:24] LABS: Hematocrit 38.6 % (37.0-47.0); Mean Corpuscular HGB Conc 31.1 g/dl (32-36); Mean Corpuscular Hemoglobin 26.8 pg (26-34); Mean Corpuscular Volume 86.2 fl (80-100); Mean Platelet Volume 10.7 fl (7.4-10.4); Platelet Count Result 330 k/mm3 (150-375); Red Blood Count 4.48 M/mm3 (4.2-5.4); Red Cell Distribution Width 14.2 % (11.5-14.5); White Blood Count 7.6 K/mm3 (4.5-10.0)
--- NOTE | 2024-06-30 08:26 | PM.IMPN ---
Progress Note: A&P Assessment and Plan (1) Sepsis: Code(s): A41.9 - Sepsis, unspecified organism Status: Acute Assessment and Plan: Meets SIRS criteria: febrile, leukocytosis, suspected source of infection - lactic acid: 0.8 - WBC downtrending - fluid resuscitation - suspected source: cholecystitis - blood cultures drawn on 06/24: NGTD - UA nonconcerning for infection - CT abdomen/pelvis: Worsened acute cholecystitis. 12 mm right kidney mass which may be a hemorrhagic cyst or less likely a neoplasm. - Antibiotics: flagyl and zosyn 06/28 continue zosyn 06/29- WBC improving-11.2 today (down from 13.3), remains afebrile completed course of zosyn (2) Acute cholecystitis: Code(s): K81.0 - Acute cholecystitis Status: Acute Assessment and Plan: - CT abdomen/pelvis: Worsened acute cholecystitis. 12 mm right kidney mass which may be a hemorrhagic cyst or less likely a neoplasm. - RUQ US: acute cholecystitis with gallstones noted. Positive murphys sign. - Bili and LFTs WNL - Antibiotics: started on Rocephin and Flagyl 06/23, Rocephin changed to Zosyn for better abdominal coverage on 06/24 - Surgery consulted Continue IV antibiotics Patient wishes to proceed with surgery. Cholecystectomy scheduled for tomorrow 06/27- plan for cholecystectomy Findings:acute gangrenous cholecystitis, extensive inflammation with significant omental and transverse colon adhesions. 06/28- postop day 1- s/p difficult yuan with drain placement, cont drain and abx, pain control, ADAT, encourage out if bed and IS 06/29 postop day 2. drain in place, surgery is following 06/30- drain was pulled per surgery yesterday at the bedside 06/30 stable- pain is minimal. if cleared with surgery- will anticipate discharge home today or tomorrow (3) Right renal mass: Code(s): N28.89 - Other specified disorders of kidney and ureter Status: Acute Assessment and Plan: CT abdomen/pelvis: 12 mm right kidney mass which may be a hemorrhagic cyst or less likely a neoplasm. Abdomen MRI without and with contrast is recommended. - Can pursue MRI once acute symptoms resolve - Discussed with patient and she plans to follow up with PCP once back home (4) Hypertension: Code(s): I10 - Essential (primary) hypertension Status: Acute Assessment and Plan: Blood pressures are high due to pain; she has also been out of medications for 2 months. Resume antihypertensives. - amlodipine 10 mg daily - started on losartan 12.5 mg daily - hydralazine 10 mg PRN for systolic >180 - continue to monitor -stable- 143/82 06/28- BP elevated. has hydralazine PRN. will increase losartan to 25 mg daily instead of 12.5 06/30 pt doesnot want to take amlodipine as it makes her sleepy. ok to hold and will titrate losartan up to 50 mg (5) Type 2 diabetes mellitus: Code(s): E11.9 - Type 2 diabetes mellitus without complications Status: Acute Assessment and Plan: - hypoglycemia protocol - POC blood glucose ACHS - home medication - none, states she was recently taken off of metformin by her PCP - correct regimen ordered - low dose TIDWM and HS - A1C 6.3 (6) Morbid (severe) obesity due to excess calories: Code(s): E66.01 - Morbid (severe) obesity due to excess calories Status: Acute Assessment and Plan: was on metformin but taken off per pcp in order to prevent metabolic complications of morbid obesity- will be a good candidate for GLP-1 upon discharge as will provide weight loss benefits in addition to t2dm control Time Spent With Patient Time with patient: Greater than 35 minutes Subjective Date/time seen: 06/30/24 08:26 Interval history: 58-year-old female with history of deep venous thrombosis, type 2 diabetes mellitus, and hypertension who presented to the emergency department for evaluation of abdominal pain. Patient is pleasant lying comfortably in bed. She continues to have low-grade fevers
[2024-06-30] MEDS: LOSARTAN POTASSIUM 25 MG TABLET PO ×2 (08:29→10:18)
[2024-06-30] MEDS: POTASSIUM CHLORIDE 20 MEQ PACKET (FOR LIQUID) PO (08:29)
[2024-06-30 10:00] VITALS: BP 155/91; PULSE 65; RESP 12; TEMP 36.4; O2SAT 100
[2024-06-30 12:00] LABS: Glucose Point of Care 126 mg/dl (65-105)
[2024-06-30 14:00] VITALS: BP 162/65; PULSE 65; RESP 12; TEMP 36.4; O2SAT 100
[2024-06-30 16:40] LABS: Glucose Point of Care 129 mg/dl (65-105)
[2024-06-30 18:00] VITALS: BP 186/70; PULSE 61; RESP 12; TEMP 36.6; O2SAT 100
[2024-06-30 20:45] VITALS: BP 184/84; PULSE 93; RESP 16; TEMP 36.3; O2SAT 100
--- NOTE | 2024-06-30 20:56 | PC.NURSE ---
Patient's blood pressure was elevated at 186/64. Patient refused any medication to correct the issue stating she just wanted to wait and see. Education was provided about the risks of leaving an elevated blood pressure without, and patient continued to refuse medication at this time. Patient is A&O x3, no complaints of headache or signs of distress at this time. This RN will continue to monitor throughout shift.
[2024-06-30 21:06] LABS: Glucose Point of Care 107 mg/dl (65-105)
[2024-07-01 01:00] VITALS: BP 169/64; PULSE 67; RESP 16; TEMP 37.2; O2SAT 99
[2024-07-01 04:15] VITALS: BP 182/77; PULSE 82; RESP 20; TEMP 36.4; O2SAT 97
--- NOTE | 2024-07-01 04:51 | PC.NURSE ---
PT REFUSING IV ACCESS. EDUCATED PT ON IMPORTANCE OF MAINTAINING IV ACCESS ESPECIALLY WITH HER ELEVATED BP. PT STATED SHE WAS TIRED OF GETTING STUCK. PT HAS BEEN REFUSING MEDICATIONS TO IMPROVE BP SUGGESTED BY HER NURSE SUSHMA AND DOES NOT SEEM TO BE INTERESTED IN BEING COMPLIANT WITH TREATMENT.
[2024-07-01 04:53] LABS: Hematocrit 39.2 % (37.0-47.0); Hemoglobin 12.2 g/dL (12.0-15.0); Mean Corpuscular HGB Conc 31.1 g/dl (32-36); Mean Corpuscular Hemoglobin 26.3 pg (26-34); Mean Corpuscular Volume 84.5 fl (80-100); Mean Platelet Volume 10.4 fl (7.4-10.4); Platelet Count Result 353 k/mm3 (150-375); Red Blood Count 4.64 M/mm3 (4.2-5.4); Red Cell Distribution Width 14.1 % (11.5-14.5); White Blood Count 7.9 K/mm3 (4.5-10.0)
[2024-07-01 08:07] LABS: Glucose Point of Care 131 mg/dl (65-105)
[2024-07-01] MEDS: POTASSIUM CHLORIDE 20 MEQ PACKET (FOR LIQUID) PO (09:43)
[2024-07-01 09:50] VITALS: BP 185/68
[2024-07-01] MEDS: LOSARTAN POTASSIUM 25 MG TABLET PO (10:50)
--- NOTE | 2024-07-01 11:59 | PM.DS ---
DS: Admitting Diagnosis Discharge Date 07/01 Admitting Diagnosis abd pain DS: Discharge Diagnosis Discharge Diagnosis (1) Sepsis: Code(s): A41.9 - Sepsis, unspecified organism Status: Acute Assessment and Plan: Meets SIRS criteria: febrile, leukocytosis, suspected source of infection - lactic acid: 0.8 - WBC downtrending - fluid resuscitation - suspected source: cholecystitis - blood cultures drawn on 06/24: NGTD - UA nonconcerning for infection - CT abdomen/pelvis: Worsened acute cholecystitis. 12 mm right kidney mass which may be a hemorrhagic cyst or less likely a neoplasm. - Antibiotics: flagyl and zosyn 06/28 continue zosyn 06/29- WBC improving-11.2 today (down from 13.3), remains afebrile completed course of zosyn 07/01- resolved (2) Acute cholecystitis: Code(s): K81.0 - Acute cholecystitis Status: Acute Assessment and Plan: - CT abdomen/pelvis: Worsened acute cholecystitis. 12 mm right kidney mass which may be a hemorrhagic cyst or less likely a neoplasm. - RUQ US: acute cholecystitis with gallstones noted. Positive murphys sign. - Bili and LFTs WNL - Antibiotics: started on Rocephin and Flagyl 06/23, Rocephin changed to Zosyn for better abdominal coverage on 06/24 - Surgery consulted Continue IV antibiotics Patient wishes to proceed with surgery. Cholecystectomy scheduled for tomorrow 06/27- plan for cholecystectomy Findings:acute gangrenous cholecystitis, extensive inflammation with significant omental and transverse colon adhesions. 06/28- postop day 1- s/p difficult yuan with drain placement, cont drain and abx, pain control, ADAT, encourage out if bed and IS 06/29 postop day 2. drain in place, surgery is following 06/30- drain was pulled per surgery yesterday at the bedside 06/30 stable- pain is minimal. if cleared with surgery- will anticipate discharge home today or tomorrow 07/01 stable overnight- cleared to be discharged with a f/u in 2 weeks with surgery (3) Right renal mass: Code(s): N28.89 - Other specified disorders of kidney and ureter Status: Acute Assessment and Plan: CT abdomen/pelvis: 12 mm right kidney mass which may be a hemorrhagic cyst or less likely a neoplasm. Abdomen MRI without and with contrast is recommended. - Can pursue MRI once acute symptoms resolve - Discussed with patient and she plans to follow up with PCP once back home (4) Hypertension: Code(s): I10 - Essential (primary) hypertension Status: Acute Assessment and Plan: Blood pressures are high due to pain; she has also been out of medications for 2 months. Resume antihypertensives. - amlodipine 10 mg daily - started on losartan 12.5 mg daily - hydralazine 10 mg PRN for systolic >180 - continue to monitor -stable- 143/82 06/28- BP elevated. has hydralazine PRN. will increase losartan to 25 mg daily instead of 12.5 06/30 pt doesnot want to take amlodipine as it makes her sleepy. ok to hold and will titrate losartan up to 50 mg (5) Type 2 diabetes mellitus: Code(s): E11.9 - Type 2 diabetes mellitus without complications Status: Acute Assessment and Plan: - hypoglycemia protocol - POC blood glucose ACHS - home medication - none, states she was recently taken off of metformin by her PCP - correct regimen ordered - low dose TIDWM and HS - A1C 6.3 (6) Morbid (severe) obesity due to excess calories: Code(s): E66.01 - Morbid (severe) obesity due to excess calories Status: Acute Assessment and Plan: was on metformin but taken off per pcp in order to prevent metabolic complications of morbid obesity- will be a good candidate for GLP-1 upon discharge as will provide weight loss benefits in addition to t2dm control DS: Summary Hospital Course Hospital Course: Interval history: 58-year-old female with history of deep venous thrombosis, type 2 diabetes mellitus, and hypertension who presented to the emergency department for lydia
[2024-07-01 12:06] LABS: Glucose Point of Care 149 mg/dl (65-105)
[2024-07-01 12:32] VITALS: BP 176/69; PULSE 70; RESP 18; TEMP 36.2; O2SAT 100
== END 2024-07-01 14:05 | disposition home or self-care (01) | DRG 710 ==
LOC: ANHED 10:52 → ANH2MED 13:39
PROVIDERS: Physician Assistant; Student in an Organized Health Care Education/Training Program; Surgery; Admitting Provider Internal Medicine; Emergency Provider Student in an Organized Health Care Education/Training Program; Visit Provider Nurse Practitioner
PROC: 0FT44ZZ Resection of Gallbladder, Percutaneous Endoscopic Approach (ICD-10-PCS; CPT 47562; principal; 2024-06-27 14:00)
DX: A41.9 Sepsis, unspecified organism (principal); K80.00 Calculus of gallbladder with acute cholecystitis without obstruction; Z68.43 Body mass index [BMI] 50.0-59.9, adult; K82.A1 Gangrene of gallbladder in cholecystitis; I10 Essential (primary) hypertension; E11.9 Type 2 diabetes mellitus without complications; K66.0 Peritoneal adhesions (postprocedural) (postinfection); N28.89 Other specified disorders of kidney and ureter; E66.01 Morbid (severe) obesity due to excess calories; Z86.718 Personal history of other venous thrombosis and embolism
CPT/HCPCS: 36415; 74177; 76705; 80053; 81001; 82948; 83036; 83605; 83690; 83735; 85025; 85027; 87040; 88304; 93005; 93970; 96361; 96365; 96375; 99285; A9270; G0378; G0379; J0330; J0360; J0696; J1100; J1170; J1815; J1836; J2270; J2405; J2543; J2704; J3010; J7030; J7120; Q9967